=== PATIENT | female | born 1970 | race Caucasian/White ===

== ENCOUNTER 2021-07-23 14:41 | Outpatient (CLI) | payer OTHER, SELFPAY ==
--- NOTE | ~2021-07-23 | XR_ITS ---
XR chest 2V DATE: 07/23/2021 15:09 INDICATION: Cough. Recent pneumonia. TECHNIQUE: PA and lateral views COMPARISON: 11/28/2014 2 view chest FINDINGS: Normal heart size. No hilar or mediastinal enlargement. No pulmonary infiltrate or consolid ation, pleural effusion or pulmonary vascular congestion or pneumothorax. Included skeletal structure s are unremarkable. IMPRESSION: No active cardiopulmonary disease Reviewed, dictated and finalized at location A.
== END 2021-07-23 14:42 | disposition home or self-care (01) ==
LOC: ANHIMG 14:57
PROVIDERS: PCP Internal Medicine; Visit Provider Nurse Practitioner
DX: R05.9 Cough, unspecified (principal); R00.0 Tachycardia, unspecified
CPT/HCPCS: 71046

== ENCOUNTER 2021-09-26 19:22 | Emergency (ER) | payer OTHER, SELFPAY ==
--- NOTE | ~2021-09-26 | XR_ITS ---
EXAMINATION: XR chest 1V portable INDICATION: Cough and fever TECHNIQUE: Portable AP chest at 2008 hours COMPARISON: 07/23/2021 FINDINGS: The lungs are free of acute opacities. There is no pleural effusion or pneumothorax. The ca rdiomediastinal silhouette is normal. The visualized bones and soft tissues are unremarkable. IMPRESSION: 1. No acute cardiopulmonary abnormality. Reviewed, dictated and finalized at location F.
[2021-09-26 19:25] VITALS: BP 147/95; PULSE 124; RESP 20; TEMP 37.5; O2SAT 100
--- NOTE | 2021-09-26 22:03 | ECG_ITS ---
Measurements Intervals [place] Rate: 122 P: 30 TX: 131 QRS: 16 QRSD: 89 T: 28 QT: 338 QTc: 482 Interpretive Statements SINUS TACHYCARDIA NONSPECIFIC T-WAVE ABNORMALITY ABNORMAL RHYTHM ECG NO PREVIOUS ECG AVAILABLE FOR COMPARISON Electronically Signed On 09-27-2021 9:26:17 CDT by Betsy Wheeler M.D.
[2021-09-26 22:44] LABS: Appearance Urine Clear (Clear); Bilirubin Urine Negative (Negative); Color Urine Yellow (Yellow); Glucose Urine UA Negative (Negative); Ketones Urine Negative (Negative); Leukocyte Esterase Ur Negative LEU/UL (Negative); Nitrate Urine Negative (Negative); Protein Urine Negative (Negative); Urobilinogen Urine 0.2 mg/dL (<2.0)
[2021-09-26 22:44] LABS: Basophils Percent Auto 0.4 % (0.2-1.2); Eosinophils Absolute Auto 0.1 K/mm3 (0-0.3); Eosinophils Percent Auto 1.2 % (0-4.4); Hematocrit 37.8 % (37.0-47.0); Hemoglobin 12.2 g/dL (12.0-15.0); Immature Granulocyte Absolute 0.03 K/mm3 (0.00-0.031); Immature Granulocyte Percent A 0.4 % (0-0.5); Lymphocytes Absolute Auto 0.78 K/mm3 (0.9-3.2); Lymphocytes Percent Auto 9.6 % (18.3-44.2); Mean Corpuscular HGB Conc 32.3 g/dl (32-36); Mean Corpuscular Hemoglobin 30.6 pg (26-34); Mean Corpuscular Volume 94.7 fl (80-100); Mean Platelet Volume 9.1 fl (7.4-10.4); Monocytes Absolute Auto 0.7 K/mm3 (0.1-0.6); Monocytes Percent Auto 8.8 % (2.6-8.5); Neutrophils Absolute Auto 6.5 K/mm3 (1.3-6.7); Neutrophils Percent Auto 79.6 % (45.5-73.1); Platelet Count Result 255 k/mm3 (150-375); Red Blood Count 3.99 M/mm3 (4.2-5.4); Red Cell Distribution Width 13.2 % (11.5-14.5); White Blood Count 8.2 K/mm3 (4.5-10.0)
[2021-09-26 22:45] LABS: Add Urine Microscopic? YES; Blood Urine Trace-Intact (Negative)
[2021-09-26 22:47] LABS: Mucus Urine Rare /lpf; Squamous Epithelial Cell Urine Rare /hpf (Few); WBC Urine 0-3 /hpf
[2021-09-26 22:48] LABS: Alanine Aminotransferase 23 U/L (6-35); Albumin Level 4.3 g/dL (3.5-5.1); Alkaline Phosphatase 112 U/L (38-126); Anion Gap 8 mmol/L (8-16); Aspartate Amino Transferase 40 U/L (14-36); Bilirubin,Total 0.3 mg/dL (0.2-1.3); Blood Urea Nitrogen 9 mg/dL (7-17); Calcium 8.8 mg/dL (8.4-10.2); Carbon Dioxide 27 mmol/L (22-30); Chloride 104 mmol/L (98-107); Estimated CRCL calculation 132 ml/min; Estimated Glomerular Filt Rate > 60; Glucose 108 mg/dL (65-110); Potassium 3.6 mmol/L (3.4-5.0); Sodium 139 mmol/L (137-145)
[2021-09-26 22:49] LABS: Lactic Acid Reflex 1.4 mmol/L (0.7-2.0)
[2021-09-26 22:49] LABS: INR 1.1; Prothrombin Time 13.3 Seconds (11.1-14.7)
[2021-09-26 22:50] LABS: Partial Thromboplastin Time 27.7 SECONDS (22.3-36.8)
[2021-09-26 22:52] LABS: D Dimer 0.42 ug/mL (<0.48)
[2021-09-26 22:59] VITALS: BP 155/80; PULSE 121; RESP 20; O2SAT 97
[2021-09-26 23:00] LABS: NT Pro B Type Natriuretic Pept 37 pg/mL (5-100); Troponin I < 0.012 ng/mL (0.000-0.034)
[2021-09-26] MEDS: SODIUM CHLORIDE 0.9% IV 1,000 ML 999 ML IV CONT ×2 (23:00)
[2021-09-26 23:13] LABS: SARS-CoV-2 RNA PCR Positive
--- NOTE | 2021-09-27 00:01 | ED.GENADULT ---
HPI - General Adult General Chief complaint: Dizziness Stated complaint: fever, cough since July 24 Time Seen by Provider: 09/26/21 22:02 Source: patient Mode of arrival: ambulatory Limitations: no limitations History of Present Illness HPI narrative: This is a 50 year old female who presents for evaluation of fever and worsening cough. Patient states starting in June she had fever and cough. She was started on antibiotics at that time for a sinus infection. She states her fever resolved until today. Today she had fever up to 102 F. She also reports today she had worsening cough that is productive with clear phlegm. SHe reports runny nose, congestion, sore throat, and diarrhea today. She denies vomiting. She reports midsternal chest pain when she coughs. She completed antibiotics 1 week ago for continued cough. She states she has done at home covid test which have been negative. Related Data Home Medications Medication Instructions Recorded Confirmed levothyroxine 200 mcg tablet 200 mcg PO DAILY 06/29/19 09/08/21 cholecalciferol (vitamin D3) 25 25 mcg PO DAILY 07/23/21 09/08/21 mcg (1,000 unit) capsule Allergies Allergy/AdvReac Type Severity Reaction Status Date / Time peanut Allergy Severe ANAPHYLAXIS Verified 09/26/21 19:29 red dye Allergy Dizziness Verified 09/26/21 19:29 shellfish derived AdvReac Severe FAULKNER/NAUSEA Verified 09/26/21 19:29 SEAFOOD AND SHELLFISH adhesive AdvReac Intermediate BLISTERS,SKIN Verified 09/26/21 19:29 PEELING doxycycline AdvReac Intermediate HALLUCINATI Verified 09/26/21 19:29 ONS tetracycline AdvReac Intermediate VISUAL Verified 09/26/21 19:29 DISTRUBANCE NAPROXEN SODIUM AdvReac Intermediate visual Uncoded 09/26/21 19:29 disturbance Review of Systems Review of Systems: All systems reviewed & are unremarkable except as noted in HPI and below Constitutional: Constitutional: Reports chills ENT: Reports nasal congestion and Reports sore throat Cardiovascular: Cardiovascular: Reports chest pain (with cough) and Denies rapid heart rate Respiratory: Respiratory: Reports chest congestion, Reports cough, Reports dyspnea and Denies wheezing Gastrointestinal: Gastrointestinal: Denies abdominal pain, Denies bloating, Denies constipation and Reports diarrhea Neurologic: Denies headache(s), Denies focal weakness and Denies numbness PMFSH Past Medical History Medical History Thyroid cancer 2017 Surgical History Surgical History H/O thyroidectomy 2017 Family History Family History Father CAD (coronary artery disease) Type 2 diabetes mellitus Thyroid disease Mother Type 2 diabetes mellitus Hypertension Sibling Thyroid cancer Other Depression Diabetes mellitus Family history of arthritis Family history of hearing loss Social History Social History Smoking status: Never smoker Alcohol intake: never Exam Const: General: no acute distress and alert Nutritional Appearance: obese Orientation/consciousness: patient oriented x3 HENMT: Head: normal to inspection Ears: external ears normal Eyes: Pupils: Equal, round and reactive pupils present EOM: EOMs intact bilaterally Neck: Neck: normal visual inspection Chest: Chest palpation & inspection: normal inspection of the chest Resp: Effort & Inspection: normal respiratory effort Auscultation: clear to auscultation bilaterally and breath sounds present Cardio: Rate: tachycardic Rhythm: regular rhythm Heart sounds: no murmurs GI: GI Palp: Yes Soft to palpation, No Tenderness to palpation present (GI), No Guarding due to palpation present (GI) and No Rigid due to palpation Auscultation: normal bowel sounds Back/Spine/Pelvis: Back: n
[2021-09-27 00:49] VITALS: BP 162/73; PULSE 117; RESP 22; O2SAT 96
[2021-09-27 01:48] VITALS: BP 146/73; PULSE 113; RESP 14; TEMP 37.7; O2SAT 94
[2021-09-27] MEDS: IBUPROFEN 400 MG TABLET 800 MG PO (02:59)
[2021-09-27 03:07] VITALS: BP 103/60; PULSE 103; RESP 18; O2SAT 95
[2021-09-27 05:17] LABS: Influenza A QL RT-PCR Negative (Negative); Influenza B QL RT-PCR Negative (Negative)
== END 2021-09-27 03:09 | disposition home or self-care (01) ==
PROVIDERS: Emergency Provider General Practice; PCP Internal Medicine
DX: U07.1 COVID-19 (principal); B34.9 Viral infection, unspecified; R06.00 Dyspnea, unspecified; Z85.850 Personal history of malignant neoplasm of thyroid
CPT/HCPCS: 36415; 71045; 80053; 81001; 83605; 83880; 84484; 85025; 85380; 85610; 85730; 87040; 87502; 93005; 96360; 96361; 96365; 99284; A9270; C9803; J0131; J7030; U0003; U0005

== ENCOUNTER 2022-02-26 18:33 | Emergency (ER) | payer OTHER, SELFPAY ==
--- NOTE | ~2022-02-26 | XR_ITS ---
XR wrist LT min 3V DATE: 02/26/2022 18:56 INDICATION: Injury and popping when lifting a child this morning TECHNIQUE: 3 views COMPARISON: None FINDINGS: The breasts no fracture or dislocation, periosteal reaction or bone destruction, erosive ch esmer or chondrocalcinosis. There is mild osteoarthritis at the first carpometacarpal joint. IMPRESSION: No fracture or dislocation Mild osteoarthritis at first carpometacarpal joint Reviewed, dictated and finalized at location A.
[2022-02-26 18:48] VITALS: BP 154/64; PULSE 95; RESP 12; TEMP 37.3; O2SAT 100
--- NOTE | 2022-02-26 19:03 | ED.UPPEXIN ---
HPI - Extremity Injury (Upper) General Chief Complaint: Extremity Injury, Upper Stated Complaint: Left Hand Injury/WC Time Seen by Provider: 02/26/22 19:28 Source: patient and RN notes reviewed Mode of arrival: ambulatory Limitations: no limitations History of Present Illness HPI narrative: 51-year-old female presents with concern for left wrist injury. 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 She reports no pain at rest, when she does certain motions like gripping, open car door, closing car door, pushing pulling she has pain in the radial wrist area. She reports some tingling in her hand. She denies swelling, bruising, redness. MD complaint: injury to: left and wrist Related Data Home Medications Medication Instructions Recorded Confirmed levothyroxine 200 mcg tablet 200 mcg PO DAILY 06/29/19 02/26/22 cholecalciferol (vitamin D3) 25 25 mcg PO DAILY 07/23/21 02/26/22 mcg (1,000 unit) capsule zinc gluconate 30 mg tablet 30 mg PO DAILY 09/30/21 02/26/22 calcium citrate 200 mg 1 tablet PO DAILY 02/26/22 02/26/22 [id number] D3 200 [id number] tablet (ADVANCED Calcium) Allergies Allergy/AdvReac Type Severity Reaction Status Date / Time peanut Allergy Severe ANAPHYLAXIS Verified 02/26/22 18:52 red dye Allergy Dizziness Verified 02/26/22 18:52 shellfish derived AdvReac Severe FAULKNER/NAUSEA Verified 02/26/22 18:52 SEAFOOD AND SHELLFISH adhesive AdvReac Intermediate BLISTERS,SKIN Verified 02/26/22 18:52 PEELING doxycycline AdvReac Intermediate HALLUCINATI Verified 02/26/22 18:52 ONS tetracycline AdvReac Intermediate VISUAL Verified 02/26/22 18:52 DISTRUBANCE NAPROXEN SODIUM AdvReac Intermediate visual Uncoded 02/26/22 18:52 disturbance Review of Systems Review of Systems: CONSTITUTIONAL: Denies malaise, chills, sweats, or fever. SKIN: Denies rash or itching, open skin, laceration, abrasion, redness, warmth, swelling. MUSCULOSKELETAL: Reports left wrist pain NEUROLOGIC: Denies numbness, weakness All systems reviewed & are unremarkable except as noted in HPI and below PMFSH Past Medical History Medical History Thyroid cancer 2017 Surgical History Surgical History H/O thyroidectomy 2016 Family History Family History Father CAD (coronary artery disease) Type 2 diabetes mellitus Thyroid disease Mother Type 2 diabetes mellitus Hypertension Sibling Thyroid cancer Other Depression Diabetes mellitus Family history of arthritis Family history of hearing loss Social History Social History Smoking status: Never smoker Alcohol intake: never Comments At time of signature, agree with nursing past medical, surgical, social and family history. There is no relevant family history pertinent to the presenting complaint Exam Narrative: GENERAL: Well-appearing, well-nourished, and in no acute distress. HEAD: Normocephalic EYES: PERRLA, conjunctivae clear NECK: Supple. CHEST: Speaks in full sentences. No respiratory distress. HEART: Regular rate and rhythm. Normal and equal peripheral pulses. EXTREMITIES: Left wrist hand and digits of hand have normal strength and sensation. 5/5 strength with digit flexion, extension. Range of motion normal. No clubbing, cyanosis, or edema noted. No tenderness. Skin intact. Normal digital cascade with flexion of fingers, median, ulnar and radial nerve intact. Normal sensation of each side of finger. Can perform 'okay' sign, 'cross over finger test of index and middle fingers' and 'thumbs up' sign. No scissoring. Normal thumb opposition. Good capillary refill and radial pulse. Distal capillary refill
== END 2022-02-26 19:40 | disposition home or self-care (01) ==
PROVIDERS: Emergency Provider Nurse Practitioner; PCP Internal Medicine
DX: S63.502A Unspecified sprain of left wrist, initial encounter (principal); X58.XXXA Exposure to other specified factors, initial encounter; Y99.0 Civilian activity done for income or pay; E89.0 Postprocedural hypothyroidism; Z85.850 Personal history of malignant neoplasm of thyroid
CPT/HCPCS: 73110; 99213; G0463

== ENCOUNTER 2023-02-03 13:52 | Emergency (ER) | payer OTHER, SELFPAY ==
[2023-02-03 14:01] VITALS: BP 151/75; PULSE 76; RESP 16; TEMP 36.9; O2SAT 97
[2023-02-03] MEDS: TETANUS,DIPHTHERIA,AC PERTUSSIS ADULT (0.5 ML) BOOSTRIX IM (14:28)
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
== END 2023-02-03 14:43 | disposition home or self-care (01) ==
PROVIDERS: Emergency Provider Nurse Practitioner Family; PCP Internal Medicine
DX: S51.851A Open bite of right forearm, initial encounter (principal); Z79.899 Other long term (current) drug therapy; Z23 Encounter for immunization; W50.3XXA Accidental bite by another person, initial encounter; Y99.0 Civilian activity done for income or pay
CPT/HCPCS: 90471; 90715; 99213; G0463

== ENCOUNTER 2023-10-10 12:10 | Emergency (ER) | payer OTHER, SELFPAY ==
[2023-10-10 12:36] VITALS: BP 103/83; PULSE 88; RESP 20; TEMP 37.5; O2SAT 100
--- NOTE | 2023-10-10 14:06 | ED.GENADULT ---
HPI - General Adult General Chief complaint: Upper Respiratory Infection Stated complaint: throat/congestion Time Seen by Provider: 10/10/23 13:35 Source: patient, RN notes reviewed and old records reviewed Mode of arrival: ambulatory Limitations: no limitations History of Present Illness HPI narrative: 52 year old female who presents to [facility] care with complaints of 5 day history of dry cough, ear pain, sore throat, head congestion, hoarseness, body aches, chills fatigue and some dizziness. Pateint has history of sinus allergies has been taking Zyrtec for her symptoms. Patient reports no known ill contacts. MD complaint: csore throat, head congestion, body aches,chills cough,ear pain, Onset (ago): day(s) (5) Severity scale (1-10): 3 Treatments prior to arrival: other (zyrtec) Related Data Home Medications Medication Instructions Recorded Confirmed levothyroxine 175 mcg tablet 175 mcg PO DAILY 02/03/23 10/10/23 (Synthroid) Allergies Allergy/AdvReac Type Severity Reaction Status Date / Time peanut Allergy Severe ANAPHYLAXIS Verified 10/10/23 13:25 red dye Allergy Dizziness Verified 10/10/23 13:25 shellfish derived AdvReac Severe FAULKNER/NAUSEA Verified 10/10/23 13:25 SEAFOOD AND SHELLFISH adhesive AdvReac Intermediate BLISTERS,SKIN Verified 10/10/23 13:25 PEELING doxycycline AdvReac Intermediate HALLUCINATI Verified 10/10/23 13:25 ONS naproxen AdvReac Intermediate Unknown Verified 10/10/23 13:25 tetracycline AdvReac Intermediate VISUAL Verified 10/10/23 13:25 DISTRUBANCE Review of Systems Review of Systems: CONSTITUTIONAL:reports malaise, chills, sweats, or fever. EYES: Denies visual changes, redness, or discharge. ENT: Reports rhinorrhea, congestion, sinus pain, otalgia and sore throat. CARDIOVASCULAR: Denies chest pain, palpitations, or edema. RESPIRATORY: Reports dry cough.? Denies dyspnea. GASTROINTESTINAL: Denies abdominal pain, nausea, vomiting, diarrhea SKIN: Denies rash or itching. MUSCULOSKELETAL:reports myalgia. NEUROLOGIC: Denies headache. All systems reviewed & are unremarkable except as noted in HPI and below PMFSH Past Medical History Medical History Anxiety and depression Chronic sinusitis Hypothyroidism (acquired) Thyroid cancer 2017 Surgical History Surgical History H/O thyroidectomy 2017 History of arthroscopy of knee History of hysteroscopy Family History Family History Father CAD (coronary artery disease) Type 2 diabetes mellitus Thyroid disease Mother Type 2 diabetes mellitus Hypertension Sibling Thyroid cancer Other Depression Diabetes mellitus Family history of arthritis Family history of hearing loss Social History Social History Smoking status: Never smoker Alcohol intake: current Substance use: never Substance use type: does not use Living arrangements: alone Occupation/Education: unemployed Gender identity (if verbalized by the patient): Female Agree to blood products: Yes Comments At time of signature, agree with nursing past medical, surgical, social and family history. There is no relevant family history pertinent to the presenting complaint Exam Narrative: GENERAL: Well-appearing, well-nourished, and in no acute distress. HEAD: Normocephalic EYES: PERRLA, conjunctivae clear ENT: Nares clear, turbinates edematous and erythematous, clear discharge. Mucous membranes moist Right TM red and bulging, Left TM pearly kc with dull light reflex; no tragal tenderness. Oropharynx erythematous without lesions. Tonsils not enlarged and without exudate, no drooling, no hoarseness, no trismus, uvula midline.post nasal drainage NECK: Supple. No lymphadenopathy
== END 2023-10-10 14:10 | disposition home or self-care (01) ==
PROVIDERS: Emergency Provider Registered Nurse; PCP Internal Medicine
DX: H66.91 Otitis media, unspecified, right ear (principal); J02.9 Acute pharyngitis, unspecified; Z20.822 Contact with and (suspected) exposure to COVID-19; E89.0 Postprocedural hypothyroidism; Z85.850 Personal history of malignant neoplasm of thyroid
CPT/HCPCS: 87081; 87426; 87804; 87880; 99213; G0463

== ENCOUNTER 2024-10-04 20:12 | Emergency (ER) | payer OTHER, SELFPAY ==
--- NOTE | ~2024-10-04 | XR_ITS ---
XR foot LT min 3V Ordering provider: Zainab High APRN History: . L foot injury . Comparison: None. FINDINGS: BONES: No acute fracture or dislocation. JOINT SPACES: Normal. No tarsal coalition. SOFT TISSUES: Normal. Calcaneus spur. IMPRESSION: No acute osseous abnormality left foot. Reviewed, dictated and finalized at location A.
--- OUTSIDE RECORDS SUMMARY | 2024-10-04 20:14 | XMS_ITS | Encounter Summary ---
Author Organization [facility] Healthcare Address [address] [place] [address] Care Team Providers Care X Ray Equipment Servicer Name Role Phone Samuel Brooke DO Primary Care Provider [phone]- [phone] Reason for Visit * Diagnostic Imaging (Routine) - Pending Review Specialty Diagnoses / Procedures Referred By Sandra jacobs Referred To Contact Procedures Breast Imaging Diagnostic Outside Reference Referral, Self Referral ID Status Reason Start Date Expiration Date V isits Requested Visits Authorized [id number] Pending Review 05/09/2024 06/08/2025 1 1 Encounter Details Date Type Department Care Team (Late st Contact Info) Description 01/18/2017 Hospital Encounter [facility] [address] [place] [address] [id number] Social History Tobacco Use Types Packs/Day Years Used Date Smoking Tobacco: Never Smokeless Tobacco: Never Alcohol Use Standard Drinks/Week Comments Never 0 (1 standard drink = 0.6 oz pur e alcohol) AUDIT-C Answer Date Recorded Q1: How often do you have a drink containing alc ohol? Monthly or less 01/09/2021 Average Number of Drinks Not on file 021 Q3: How often do you have si x or more drinks on one occasion? 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 Sexual Orientation Straight 05/03/2024 9: 50 PM DIRECTOR OF TEACHING AND LEARNING documented as of this encounter Functional Status documented as of this encounter Plan of Treatment Not on file documented as of this encounter Procedures Procedure Name Priority Date/Time Associated Diagnosis Comments BREAST IMAGING MG DIAGNOSTIC OUTSIDE REFERENCE Routine 01/18/2017 12:00 AM CDT documented in this encounter Results * Breast Imaging Diagnostic Outside Reference (01/18/2017 12:00 AM CDT) Impressions [facility] - 05/09/2024 2:04 PM DIRECTOR OF TEACHING AND LEARNING These images are for Reference purposes only and have not been reviewed by [facility] Radiology. There will be no report generated by a [facility] Radiologist. Narrative [facility] - 05/09/2024 2:04 PM DIRECTOR OF TEACHING AND LEARNING EXAMINATION: Images For Reference Purposes Only us Self Referral IMG MAMMO PROCEDURES Final Resul t [facility] documented in this encounter Visit Diagnoses Not on filedocumented in this encounter Care Teams X Ray Equipment Servicer Relationship Specialty Start Date End Date Samuel Brooke DO PCP - General 07/08/16 documented as of this encounter
--- OUTSIDE RECORDS SUMMARY | 2024-10-04 20:14 | XMS_ITS | Encounter Summary ---
Author Organization [facility] Healthcare Address [address] [place] [address] Care Team Providers Care Impersonator Character Name Role Phone Samuel Brooke DO Primary Care Provider [phone]- [phone] Reason for Visit * Diagnostic Imaging (Routine) - Pending Review Specialty Diagnoses / Procedures Referred By Sandra jacobs Referred To Contact Procedures Breast Imaging Screening Outside Reference Referral, Self Referral ID Status Reason Start Date Expiration Date V isits Requested Visits Authorized [id number] Pending Review 05/09/2024 06/08/2025 1 1 Encounter Details Date Type Department Care Team (Late st Contact Info) Description 02/17/2017 Hospital Encounter [facility] Radiology [facility] [address] [place] [address] [phone] Social History Tobacco Use Types Packs/Day Years [...] CDT Gender Identity Female 05/03/2024 9:50 PM 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[employer] Sexual Orientation Straight 05/03/2024 9: 50 PM 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[employer] documented as of this encounter Functional Status documented as of this encounter Plan of Treatment Not on file documented as of this encounter Procedures Procedure Name Priority Date/Time Associated Diagnosis Comments BREAST IMAGING MG SCREENING OUTSIDE REFERENCE Routine 02/17/2017 12:00 AM CDT documented in this encounter Results * Breast Imaging Screening Outside Reference (02/17/2017 12:00 AM CDT) Impressions [facility] - 05/09/2024 2:04 PM 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 These images are for Reference purposes only and have not been reviewed by [facility] Radiology. There will be no report generated by a [facility] Radiologist. Narrative [facility] - 05/09/2024 2:04 PM 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 EXAMINATION: Images For Reference Purposes Only us Self Referral IMG MAMMO PROCEDURES Final Resul t [facility] documented in this encounter Visit Diagnoses Not on filedocumented in this encounter Care Teams Impersonator Character Relationship Specialty Start Date End Date Samuel Brooke DO PCP - General 07/08/16 documented as of this encounter
--- OUTSIDE RECORDS SUMMARY | 2024-10-04 20:14 | XMS_ITS | Clinical Summary ---
Author Organization [facility] Address [address] [place] [address] Care Team Providers Care Impregnation Operator Name Role Phone Samuel Brooke DO Primary Care Provider [phone] Source Comments [facility],non-owned Affiliates and Associated Physician Practices is amultiple site organization consisting of ambulatory clinics and hospital sitesin [place], [place], [place] and [place]. This disclosure is being madepursuant to the Care Everywhere program and may not contain all information available regarding this patient. Last updated 18.[facility] [employer] Allergies Active Allergy Reactions Criticality Noted Date Comments Naproxen Other 04/02/2018 Dizziness and visual impairment Peanut-Derived Anaphylaxis High 04/02/2018 Shellfish Allergy Anaphylaxis High 04/02/2018 Tetracyclines Other 04/02/2018 Dizziness, and visual impairment Medications * Be aware that medications may not be up to date on this document. Alwaysverify current medications with the patient. levothyroxine (SYNTHROID) 200 MCG tablet Take 200 mcg by mouth daily before breakfast Active Calcium Carb-Cholecalci ferol (CALCIUM 500 + D3 PO) Active Family History Medical History Relation Name Comments Cancer - Skin, Non Melanoma Father Diabetes - Type 2 Father Thyroid Disease Father Cancer - Breast Mother Asthma Neg Hx Autoimmune Disease Neg Hx Bipolar Disorder Neg Hx Cancer - Colon Neg Hx Cancer - Ovarian Neg Hx Cancer - Pancreatic Neg Hx Cancer - Prostate Neg Hx Depression Neg Hx Eczema Neg Hx Hypertension Neg Hx Migraine Neg Hx Osteoporosis Neg Hx Seizures Neg Hx Sudd. <30 Neg Hx Ulcerative Colitis Neg Hx Relation Name Status Comments Father Alive Mother Alive Social History Tobacco Use Types Packs/Day Years Used Date Smoking Tobacco: Never Smokeless Tobacco: Never Tobacco Cessation:Counseling Given: No Alcohol Use Standard Drinks/Week Comments No 0 (1 standard drink = 0.6 oz pur e alcohol) Comments No Sex and Gender Information Value Date Recorded Sex Assigned at Not on file Legal Sex Female 9:44 PM GRAPHIC DESIGN PROFESSOR Gender Identity Not on file Sexual Orientation Not on file Last Filed Vital Signs Vital Sign Reading Time Taken Comments Blood Pressure 122/68 04/02/2018 11:05 AM GRAPHIC DESIGN PROFESSOR Pulse 81 04/02/2018 11:05 AM GRAPHIC DESIGN PROFESSOR Temperature 36.4 C (97.6 F) 04/02/2018 11:05 AM GRAPHIC DESIGN PROFESSOR Respiratory Rate 16 04/02/2018 11:05 AM GRAPHIC DESIGN PROFESSOR Oxygen Saturation 98% 04/02/2018 11:05 AM GRAPHIC DESIGN PROFESSOR Inhaled Oxygen Concentration - - Weight 97.5 kg (215 lb) 04/02/2018 11:05 AM GRAPHIC DESIGN PROFESSOR Height 157.5 cm (5' 2) 04/02/2018 11:05 AM GRAPHIC DESIGN PROFESSOR Body Mass Index 39.32 04/02/2018 11:05 AM GRAPHIC DESIGN PROFESSOR Plan of Treatment Health Maintenance Due Date Last Done Comments COLOGUARD (AGES 45-75) - COL ON CA SCREENING 1969 COLON MONITORING 1969 COLONOSCOPY - COLON CA SCREENING 1969 CT COLONOGRAPHY - COLON CA SCREENING 1969 Colorectal Cancer Screening 1969 FIT - COLON CA SCREENING 1969 FLEX SIG - COLON CA SCREENING 1969 LIPID TESTING 1969 MAMMOGRAM 1969 HIV SCREENING 1984 HEPATITIS C SCREENING 12/25/1987 DTAP/TDAP/TD VACCINES (1 - Tdap) 1988 HEPATITIS B VACCINE (1 of 3 - 19+ 3-dose series) 1988 SCREENING FOR DIABETES 04/02/2018 PNEUMOCOCCAL VACCINE 50+ (1 of 1 - PCV) 12/30/2019 ZOSTER VACCINE (1 of 2) 12/30/2019 COVID-19 VACCINE ( - 2023-2 5 season) 2023 DEPRESSION SCREENING 04/26/2024 INFLUENZA VACCINE (Season Ended) 2024 HIB VACCINE Aged Out No longer eligi ble based on patient's age to complete this topic HPV VACCINE Aged Out No longer eligi ble based on patient's age to complete this topic MENINGOCOCCAL (Group B) VACC INE SHARED DECISION-MAKING Aged Out No longer eligibl e based on patient's age to complete this topic MENINGOCOCCAL GROUPS A/C/Y/W VACCINE Aged Out No longer eligible b ased on patient's age to complete this topic Care Teams Impregnation Operator Relationship Specialty Start Date End Date Samuel Brooke DO PCP - General Internal Medicine 04/02/18
--- OUTSIDE RECORDS SUMMARY | 2024-10-04 20:14 | XMS_ITS | Clinical Summary ---
Author Organization [facility] Address [address] [place] [address] Care Team Providers Care Sales Coordinator Name Role Phone Samuel Brooke DO Primary Care Provider [phone]- [phone] Allergies Active Allergy Reactions Criticality Noted Date Comments Doxycycline Dizziness Reaction: DIZZINESS, Naproxen Dizziness Reaction: DIZZINESS, Peanut Anaphylaxis High 04/02/2018 Shellfish Anaphylaxis High 04/02/2018 Medications calcium carbonate-vitam in D3 1,250mg (500mg elemental) - 200 units per tablet Take 1 tablet by mouth 2 (two) times a day with meals Active sertraline (ZOLOFT) 100 mg tablet Take 1 tablet (100 mg total) by mouth daily 2 Active metFORMIN XR (GLUCOPHAGE XR) 500 mg 24 hr tabletIndicatio ns:Weight loss counseling, encounter for TAKE 1 TABLET(500 MG) BY MOUTH DAILY WITH BREAKFAST FOR 7 DAYS THEN TAKE 2 TABLETS(1000 MG) BY MOUTH DAILY WITH BREAKFAST 171 tablet 3 Active Additional Information Patient not taking.Reported on 03/26/2023 sertraline (ZOLOFT) 50 mg tablet 1 tablet (50 mg total) 4 Active levothyroxine (SYNTHROID) 175 mcg tablet Take 1 tablet by mouth daily 90 tablet 2 5 Active triamcinolone (KENALOG) 0.1 % ointment APPLY TOPICALLY TO THE AFFECTED AREA TWICE DAILY 5 Active Active Problems Problem Noted Date Diagnosed Date Arthralgia of both hands 10/01/2023 Rash and nonspecific skin eruption 10/01/2023 Chronic bilateral low back pain without sciatica 10/01/2023 Heartburn 04/23/2022 Assessment & Plan (04/23/2022 9:39 PM PATTERNMAKER PRESSURE CAST): Discussed more likely related to stress or possibly something she ate, rather than change in levothyroxine. Recommended starting omeprazole 20 mg BID. If no improvement, follow up with PCP. Arthritis 03/09/2022 Assessment & Plan (03/09/2022 3:39 PM PATTERNMAKER PRESSURE CAST): referral to Rheumatology Weight loss counseling, encounter for 10/17/2021 Assessment & Plan (05/25/2022 6:11 PM PATTERNMAKER PRESSURE CAST): Reviewed calorie restriction based on BMR as previously detailed. Reviewed recommendation/goal of >/= 150 minutes/week moderate-intensity aerobic exercise. Asked to try to track consistently with [employer] ujliann for at least 1 week to help identify calorie/carb/protein intake. Commended for weight loss to date. Assessment & Plan (04/23/2022 9:26 PM PATTERNMAKER PRESSURE CAST): Reviewed calorie restriction based on BMR as previously detailed. Reviewed recommendation/goal of >/= 150 minutes/week moderate-intensity aerobic exercise. Asked to keep detailed food diary for at least 1 week and bring to next visit and/or continue tracking on phone. Assessment & Plan (10/17/2021 5:29 PM CDT): Discussed that significant health benefits/risk reduction may be seen with even 5% weight loss. Discussed that weight loss will require calorie deficit. Calculated basal metabolic rate and estimated total energy expenditure; discussed 500-1000 kcal/day deficit to lose 1-2 lb per week. Asked to keep detailed food diary for at least 1 week and bring to next visit. Discussed setting SMART goals. Discussed relatively small, although significant, role of exercise in weight loss; greater importance in weight maintenance as shown in Look Ahead study and National Weight Control Registry. Discussed recommendation/goal for 150 minutes per week moderate-intensity aerobic exercise. Metabolic and nutritional disorder 10/17/2021 Overview (04/23/2022): MARIA LUISA-IR 4.2 Assessment & Plan (05/25/2022 6:12 PM PATTERNMAKER PRESSURE CAST): Continue low-carb (<150 g/day), low-glycemic diet. With IR confirmed per MARIA LUISA-IR score of 4.2 will start Metformin XR 500mg -- take 1 tablet daily for the 1st week, then increase to 2 tablets daily if tolerating. Discussed rationale in setting of insulin resistance. Discussed risks, benefits, alternatives, and potential side effects. Assessment & Plan (04/23/2022 9:45 PM PATTERNMAKER PRESSURE CAST): Reviewed labs with her. Continue low-carb (<150 g/day), low-glycemic diet. Discussed use of GLP-1 RA -- defer for now in setting of recent heartburn. Discussed risks, benefits, alternatives, potential side effects. No personal or family history of MTC or MEN2. Assessment & Plan (10/17/2021 5:29 PM CDT): Labs. Discussed increased risk for DM in setting of obesity and FHx DM. Discussed insulin resistance including effect on weight and risk for progression to diabetes. Recommended low-carb, low-glycemic diet; choose whole grains and avoid more highly processed carbohydrates. Discussed potential benefits of this w/r/t gut microbiome. Referred to ADA and [employer] [facility] websites for additional information on topics including glycemic index/carbohydrate choices, protein sources. More detailed recommendations pending review of labs and food record. Fatigue 10/17/2021 Assessment & Plan (05/25/2022 6:13 PM PATTERNMAKER PRESSURE CAST): Seems improved somewhat, continues to work on sleep hygiene habits. Assessment & Plan (10/17/2021 5:29 PM CDT): Labs. Discussed importance of adequate sleep; good sleep hygiene in controlling weight as well as for overall health. Snores 10/17/2021 Assessment & Plan (10/17/2021 5:29 PM CDT): Discussed comorbidities associated with sleep apnea, including effects on weight, and stressed importance of adequate treatment if present. Recommended to discuss possible sleep study with PCP. Class 3 severe obesity with serious comorbidity and body mass index (BMI) of 45.0 to 49.9 in adult 03/17/2021 Assessment & Plan (05/25/2022 6:13 PM PATTERNMAKER PRESSURE CAST): Obesity is improving with treatment. Diet interventions: as noted. Regular aerobic exercise program discussed. Plan- Start pharmacotherapy. Continue diet/exercise interventions as discussed. Schedule follow up with Dr. Palomares in 3 months. Assessment & Plan (04/23/2022 9:37 PM PATTERNMAKER PRESSURE CAST): Obesity is improving.. Plan: Diet interventions: as noted.. and Regular aerobic exercise program discussed. Assessment & Plan (03/09/2022 3:39 PM PATTERNMAKER PRESSURE CAST): Discussed lifestyle changes Scheduled with weight management clinic next month Has been working with pharmacist apprentice Assessment & Plan (03/17/2021 3:50 PM PATTERNMAKER PRESSURE CAST): Discussed lifestyle changes Will refer to weight management clinic given her BMI Post-surgical hypothyroidism 03/06/2019 Assessment & Plan (07/27/2023 5:23 PM CDT): Continue current levothyroxine dose. TSH goal normal range Assessment & Plan (03/09/2022 3:13 PM PATTERNMAKER PRESSURE CAST): Continue current levothyroxine dose. Will check thyroid function test and adjust levothyroxine dose accordingly. TSH goal lower normal range Assessment & Plan (03/17/2021 3:51 PM PATTERNMAKER PRESSURE CAST): Continue current levothyroxine dose. Will check thyroid function test and adjust levothyroxine dose accordingly. Assessment & Plan (03/04/2020 3:37 PM PATTERNMAKER PRESSURE CAST): Continue current levothyroxine dose. Will check thyroid function test and adjust levothyroxine dose accordingly. Assessment & Plan (03/06/2019 8:46 AM PATTERNMAKER PRESSURE CAST): Continue current levothyroxine dose. Will check thyroid function test and adjust levothyroxine dose accordingly. Prolactin increased 03/06/2019 Assessment & Plan (03/06/2019 8:47 AM PATTERNMAKER PRESSURE CAST): Asked for outside pituitary MRI Will check PRL level Discussed other causes of high prolactin and If/ when treatment is indicated Menstrual cramps 03/06/2019 Assessment & Plan (03/06/2019 8:46 AM PATTERNMAKER PRESSURE CAST): Will refer to ROADWAY ENGINEER for evaluation of heavy bleeding Thyroid cancer 09/29/2018 Assessment & Plan (03/06/2019 8:46 AM PATTERNMAKER PRESSURE CAST): No evidence of tumor recurrence on biochemical and radiological data so far followed by radiation oncology. Will plan follow-up with thyroid function test with a TSH goal lower normal. Biochemical evaluation with thyroid tumor markers. We will also obtain neck ultrasound for evaluation of the neck. If above are in acceptable range, will plan follow-up on yearly basis Labs checked this year - will only check TFT and Calcium level Papillary carcinoma of thyroid 07/08/2016 Assessment & Plan (07/27/2023 5:23 PM CDT): No evidence of tumor recurrence on biochemical and radiological data so far Low risk micro-papillary thyroid cancer TSH goal lower normal Biochemical evaluation with thyroid tumor markers. Assessment & Plan (03/09/2022 3:38 PM PATTERNMAKER PRESSURE CAST): No evidence of tumor recurrence on biochemical and radiological data so far Low risk micro-papillary thyroid cancer TSH goal lower normal Biochemical evaluation with thyroid tumor markers. Assessment & Plan (03/17/2021 3:51 PM PATTERNMAKER PRESSURE CAST): No evidence of tumor recurrence on biochemical and radiological data so far Low risk micro-papillary thyroid cancer TSH goal lower normal, given patient weight gain, she'd like to keep her TSH suppressed Biochemical evaluation with thyroid tumor markers. If above are in acceptable range, will plan follow-up on yearly basis Assessment & Plan (03/04/2020 3:37 PM PATTERNMAKER PRESSURE CAST): No evidence of tumor recurrence on biochemical and radiological data so far Low risk micro-papillary thyroid cancer TSH goal lower normal. Biochemical evaluation with thyroid tumor markers. We will also obtain neck ultrasound for evaluation of her neck symptoms If above are in acceptable range, will plan follow-up on yearly basis Patient reassured if above normal, no need for TBS She is suffering from financial toxicity Encounters Date Type Department Care Team Description 10/03/2024 3:00 PM CDT Office Visit [facility] Rheumatology [address] [facility] [address] [place] [address] [place] [id number] Franco Silva MD PhD Chronic right-sided low back pain, unspecified whether sciatica present (Primary Dx); Arthritis 10/03/2024 Documentation [facility] Rheumatology [address] [facility] [address] [place] [address] [place] [id number] Sarah Beth Sanchez CMA from Last 3 Months Surgical History Surgery Date Site/Laterality Comments MENISCUS SURGERY Left THYROIDECTOMY 04/26/2016 - 04/25/2017 ENDOMETRIAL ABLATION 2015,2017 HYSTEROSCOPY 04/26/2018 - 04/25/2019 Medical History Medical History Date Comments Thyroid cancer (HCC) Migraines Family History Medical History Relation Name Comments Diabetes Father Skin cancer Father Prostate cancer Maternal Grandfather Breast cancer Mother Hypertension Mother Throat cancer Paternal Grandfather Thyroid cancer Sister Relation Name Status Comments Father Maternal Grandfather Mother Alive Paternal Grandfather Sister Social History Tobacco Use Types Packs/Day Years Used Date Smoking Tobacco: Never Smokeless Tobacco: Never Tobacco Cessation:Counseling Given: Not Answered Alcohol Use Standard Drinks/Week Comments Never 0 [...] CDT Gender Identity Female 05/03/2024 9:50 PM PATTERNMAKER PRESSURE CAST Sexual Orientation Straight 05/03/2024 9: 50 PM PATTERNMAKER PRESSURE CAST Obstetrics History Para Term AB IAB SAB Ectopic Multiple Livin g Live Births 3 3 1 1 2 2 Date Outcome GA Total Labor Labor/2nd/3rd Weight Sex Type Anes PTL Rebecca A1 A5 Name Clin 1993 28w 0d M Vag-S pont Demise Complications:None Delivery Location:Home 1998 Para 42w 0d 4.479 kg (9 lb 14 oz) M Vag-S pont Living Complications:Pre eclampsia 2000 Term 42w 0d 3.856 kg (8 lb 8 oz) F Vag-S pont Living Complications:None Last Filed Vital Signs Vital Sign Reading Time Taken Comments Blood Pressure 134/87 10/03/2024 2:55 PM CDT Pulse 87 10/03/2024 2:55 PM CDT Temperature 37.1 C (98.7 F) 10/03/2024 2:55 PM CDT Respiratory Rate 20 10/17/2021 2:49 PM CDT Oxygen Saturation 98% 10/01/2023 9:28 AM CDT Inhaled Oxygen Concentration - - Weight 112.5 kg (248 lb) 10/03/2024 2:55 PM CDT Height 157.5 cm (5' 2) 10/03/2024 2:55 PM CDT Body Mass Index 45.36 10/03/2024 2:55 PM CDT Plan of Treatment Health Maintenance Due Date Last Done Comments Cervical Cancer Screening 1970 Depression Screening 1970 Hepatitis C Screening 1970 DTaP/Tdap/Td Vaccine (1 - Tdap) 1980 Hepatitis B Screening 12/30/1987 Zoster Vaccine (1 of 2) 12/30/2019 Regular Well Visit/Exam 18-64 05/30/2020 05/30/2019 Influenza Vaccine (Season Ended) 2024 Breast Cancer Screening-Mammogram 05/06/2025 025 Colon Cancer Screening-Colonoscopy 01/09/20312020 Pneumococcal vaccine <65 Aged Out No longer eligible based on patient's age to complete this topic Procedures Procedure Name Priority Date/Time Associated Diagnosis Comments SCREENING MAMMOGRAM BILATERAL W LV Schedule Routine, Read Routine (OP Routine) 05/06/2024 2:08 PM PATTERNMAKER PRESSURE CAST Screening mammogram, encounter for COLONOSCOPY 01/09/2021 1:38 PM CDT from Last 3 Months or Most Recently Relevant to Health Maintenance Results * Screening Mammogram Bilateral W Lv (05/06/2024 2:08 PM PATTERNMAKER PRESSURE CAST) Anatomical Region Laterality Modality Breast Bilateral Mammography Narrative 05/09/2024 4:01 PM PATTERNMAKER PRESSURE CAST Mammogram Technique: Bilateral Digital Breast Tomosynthesis, Bilateral C-view 2D Screening mammogram. Views obtained: bilateral craniocaudal and bilateral mediolateral oblique. Computer Aided Detection was performed. Mammogram Findings: The present examination has been compared to prior imaging studies performed at [facility] on 07/10/2016, 01/18/2017 and 02/17/2017. The breasts are heterogeneously dense, which may obscure small masses. There is no suspicious abnormality in either breast. There are no significant changes from the prior study. Impression: There is no mammographic evidence of malignancy. Annual screening mammography is recommended. If supplemental screening is desired, breast MRI would be recommended in this patient with heterogeneously dense breasts. OVERALL FINAL ASSESSMENT: BI-RADS CATEGORY 1: Negative. Procedure Note Carly Huerta MD - 05/09/2024 Mammogram Technique: Bilateral Digital Breast Tomosynthesis, Bilateral C-view 2D Screening mammogram. Views obtained: bilateral craniocaudal and bilateral mediolateral oblique. Computer Aided Detection was performed. Mammogram Findings: The present examination has been compared to prior imaging studies performed at [facility] on 07/10/2016, 01/18/2017 and 02/17/2017. The breasts are heterogeneously dense, which may obscure small masses. There is no suspicious abnormality in either breast. There are no significant changes from the prior study. Impression: There is no mammographic evidence of malignancy. Annual screening mammography is recommended. If supplemental screeningis desired, breast MRI would be recommended in this patient with heterogeneously dense breasts. OVERALL FINAL ASSESSMENT: BI-RADS CATEGORY 1: Negative. us Self Screening Mammogram IMG MAMMO PROCEDURES Fi nal Result * COLONOSCOPY (01/09/2021 1:38 PM CDT) Anatomical Region Laterality Modality Other Narrative Procedure Note Anshul Leonard MD PhD - 01/09/2021 1:38 PM CDT ENDOSCOPY LAB Patient Name: Josefa Weaver Procedure Date: 01/09/2021 1:38 PM Date of : 1970 Admit Type: Outpatient Age: 50 Gender: Female Attending MD: Anshul Leonard MD,PHD Room: [facility] ENDOSCOPY ROOM 01 Note Status: Finalized Procedure: Colonoscopy Indications: Screening for colorectal malignant neoplasm Providers: Anshul Leonard MD, PHD, Bimal Blancas M.D. (Fellow) Referring MD: Samuel Brooke DO Medicines: Monitored Anesthesia Care Complications: No immediate complications. Estimated Blood Loss: Estimated blood loss was minimal. Procedure: Pre-Anesthesia Assessment: - Prior to the procedure, a History and Physicalwas performed, and patient medications, allergies and sensitivities were reviewed. The patient'stolerance of previous anesthesia was reviewed. - The risks and benefits of the procedure and the sedation options and risks were discussed with the patient. All questions were answered and informed consent was obtained. - After reviewing the risks and benefits, thepatient was deemed in satisfactory condition to undergo the procedure. - Immediately prior to administration ofmedications, the patient was re-assessed for adequacy to receive sedatives. The benefits, risks and alternatives of theprocedure and sedation were discussed and informed consentwas obtained. All questions were answered. Please referto the signed informed consent document in the medical record. The scope was passed under direct vision.The [id number] was introduced through the anusand advanced to the cecum, identified by appendiceal orifice and ileocecal valve. The colonoscopy was performed with ease. The patient tolerated the procedure well. The quality of the bowelpreparation was evaluated using the BBPS ([place] BowelPreparation Scale) with scores of: Right Colon = 3 (entiremucosa seen well with no residual staining, smallfragments of stool or opaque liquid), Transverse Colon = 3 (entire mucosa seen well with no residual staining, small fragments of stool or opaque liquid) and Left Colon = 3 (entire mucosa seen well with no residual staining, small fragments of stool or opaqueliquid). The total BBPS score equals 9. The quality of the bowel preparation was excellent. Bowel prep was administered using a split dose. Findings: The perianal and digital rectal examinations were normal. A 4 mm polyp was found in the transverse colon. The polyp wassessile. The polyp was removed with a jumbo cold forceps. Resection andretrieval were complete. A 5 mm polyp was found in the transverse colon. The polyp wassessile. The polyp was removed with a cold snare. Resection and retrieval were complete. Internal hemorrhoids were found during retroflexion. Impression: - One 4 mm polyp in the transverse colon, removedwith a jumbo cold forceps. Resected and retrieved. - One 5 mm polyp in the transverse colon, removedwith a cold snare. Resected and retrieved. - Few diverticula - Internal hemorrhoids. Recommendation: - Repeat colonoscopy in 5 years for surveillance. - A polyp or polyps were removed during your colonoscopy today. After the pathology result ofthe polyp(s) is reviewed, the doctor who performedyour colonoscopy will recommend follow-up colonoscopy to you based on current guidelines by gastroenterology societies: - If only small hyperplastic polyps from the rectumor sigmoid were removed, repeat the colonoscopy in 10 years. - If 1 or 2 polyps less than 1 cm in size are adenomas, repeat the colonoscopy in 5 years. - If 3 or more polyps are adenomas, repeat the colonoscopy in 3 years. - If there are 10 or more adenomas, repeat the colonoscopy in 1 year. - If any polyp is 10 mm or greater in size, has villous histology or high grade dysplasia,repeat the colonoscopy in 3 years. - If a polyp greater than 2 cm was removed with a piecemeal technique, repeat the colonoscopy in 6 months to be certain that there is no residualpolyp. - Sessile serrated polyps are treated like adenomas for surveillance purposes. Electronically signed by Anshul Leonard MD PHD Anshul Leonard MD, PHD 01/09/2021 2:25:49 PM Bimal Blancas M.D. Number of Addenda: 0 Note Initiated On: 01/09/2021 1:38 PM Anshul Leonard MD PhD ENDOSCOPY PROCEDURES F inal Result from Last 3 Months or Most Recently Relevant to Health Maintenance Insurance [facility] OTHER [facility] [employer] [facility] HMO/PPO Address: [address] [place] [address] [facility] MEDICARE OOS BLUE ACCESS [facility] [place] Member Subscriber Plan / Payer (Ef fective 2021-Present) Name:Josefa Weaver Relation to Subscriber:Spouse Name:JORDYADILENEDAPHNIE Subscriber ID:Not on file Date of :[birth year]99 Payer ID:[id number] (NAIC) Type:[employer] Address: [id number] CHOICE PLUS [id number] CHOICE PLUS CHOICE PLUS Advance Directives For more information, please contact: [phone] * Full Code (Latest Code Status on File) Date Activated Date Inactivated Comments 01/09/2021 12:43 PM 01/09/2021 7:25 PM Care Teams Sales Coordinator Relationship Specialty Start Date End Date Samuel Brooke DO PCP - General 07/08/16
--- OUTSIDE RECORDS SUMMARY | 2024-10-04 20:14 | XMS_ITS | Encounter Summary ---
Author Organization [facility] Healthcare Address [address] [place] [address] Care Team Providers Care Chemical Dependency Therapist Name Role Phone Samuel Brooke DO Primary Care Provider +1- [phone] Reason for Visit * Diagnostic Imaging (Routine) - Pending Review Specialty Diagnoses / Procedures Referred By Sandra jacobs Referred To Contact Diagnoses Screening mammogram, encounter for Procedures Breast Imaging Diagnostic Outside Reference Referral, Self Referral ID Status Reason Start Date Expiration Date V isits Requested Visits Authorized [id number] Pending Review 05/09/2024 06/08/2025 1 1 Encounter Details Date Type Department Care Team (Late st Contact Info) Description 07/10/2016 Hospital Encounter [facility] [address] [place] [id number] Social History Tobacco Use Types Packs/Day Years [...] CDT Gender Identity Female 05/03/2024 9:50 PM PROGRAM ENGINEER Sexual Orientation Straight 05/03/2024 9: 50 PM PROGRAM ENGINEER documented as of this encounter Functional Status documented as of this encounter Plan of Treatment Not on file documented as of this encounter Procedures Procedure Name Priority Date/Time Associated Diagnosis Comments BREAST IMAGING MG DIAGNOSTIC OUTSIDE REFERENCE Schedule Routine, Read Routine (OP Routine) 07/10/2016 12:00 AM CDT Screening mammogram, encounter for documented in this encounter Results * Breast Imaging Diagnostic Outside Reference (07/10/2016 12:00 AM CDT) Impressions [facility]_M[facility]MO[facility] - 05/09/2024 2:04 PM PROGRAM ENGINEER These images are for Reference purposes only and have not been reviewed by [facility] Radiology. There will be no report generated by a [facility] Radiologist. Narrative [facility]_MAMMO[facility] - 05/09/2024 2:04 PM PROGRAM ENGINEER EXAMINATION: Images For Reference Purposes Only us Self Referral IMG MAMMO PROCEDURES Final Resul t [facility] documented in this encounter Visit Diagnoses Not on filedocumented in this encounter Care Teams Chemical Dependency Therapist Relationship Specialty Start Date End Date Samuel Brooke DO PCP - General 07/08/16 documented as of this encounter
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
--- OUTSIDE RECORDS SUMMARY | 2024-10-04 20:15 | XMS_ITS | Clinical Summary ---
Author Organization [facility] Care Team Providers Care Resistor Coater Name Role Phone Unavailable Primary Care Provider Unavailabl e Social History Tobacco Use Types Packs/Day Years Used Date Smoking Tobacco: Never Assessed Comments Unknown Sex and Gender Information Value Date Recorded Sex Assigned at Not on file Legal Sex Female 12:11 PM HANDLE LATHE OPERATOR Gender Identity Not on file Sexual Orientation Not on file Plan of Treatment Health Maintenance Due Date Last Done Comments Hepatitis C Virus (HCV) Screening 1969 TdaP Immunization 1969 Hepatitis B Immunization (1 of 3 - 19+ 3-dose series) 1988 Pap Smear 1990 Cervical Cancer Screening (CCS) 12/30/1999 HPV/Cotest 12/30/1999 Colonoscopy 2014 Colorectal Cancer Screening 2014 Cologuard 12/30/2019 Immunochemical Fecal Occult Blood 12/30/2019 Mammogram 12/30/2019 Pneumococcal Immunization (5 0+ years) (1 of 1 - PCV) 12/30/2019 Zoster Immunization (1 of 2) 12/30/2019 Influenza Immunization (#1) 2023 SARS-COV-2 Immunization (3 - 2023- season) 2023 07/13/2020, 06/15/2020 Respiratory Syncytial Virus (RSV) Immunization (Adult) (1 - 1-dose 75+ series) 2044 Meningococcal Immunization (ACWY) Aged Out No longer eligible b ased on patient's age to complete this topic Pneumococcal Immunization Combined Aged Out No longer eligible b ased on patient's age to complete this topic Rotavirus Immunization Aged Out No lo nger eligible based on patient's age to complete this topic
--- OUTSIDE RECORDS SUMMARY | 2024-10-04 20:15 | XMS_ITS | Encounter Summary ---
Author Organization [facility] Address [address] [place] [address] Care Team Providers Care Pipe Manufacture Supervisor Name Role Phone Samuel Brooke DO Primary Care Provider +1- [phone] Reason for Visit * Diagnostic Imaging (Routine) - Pending Review Specialty Diagnoses / Procedures Referred By Sandra jacobs Referred To Contact Procedures Breast Imaging US Outside Reference Referral, Self Referral ID Status Reason Start Date Expiration Date V isits Requested Visits Authorized [id number] Pending Review 05/09/2024 06/08/2025 1 1 Encounter Details Date Type Department Care Team (Late st Contact Info) Description 07/10/2016 12:05 AM CDT Hospital Encounter [facility] [address] [place] [id number] Social History Tobacco Use Types Packs/Day Years [...] CDT Gender Identity Female 05/03/2024 9:50 PM SECURITY MANAGEMENT SPECIALIST Sexual Orientation Straight 05/03/2024 9: 50 PM SECURITY MANAGEMENT SPECIALIST documented as of this encounter Functional Status documented as of this encounter Plan of Treatment Not on file documented as of this encounter Procedures Procedure Name Priority Date/Time Associated Diagnosis Comments BREAST IMAGING US OUTSIDE REFERENCE Routine 07/10/2016 12:05 AM CDT documented in this encounter Results * Breast Imaging US Outside Reference (07/10/2016 12:05 AM CDT) Impressions [facility] - 05/09/2024 2:04 PM SECURITY MANAGEMENT SPECIALIST These images are for Reference purposes only and have not been reviewed by [facility]. There will be no report generated by a [facility] Radiologist. Narrative [facility] - 05/09/2024 2:04 PM SECURITY MANAGEMENT SPECIALIST EXAMINATION: Images For Reference Purposes Only us Self Referral IMG MAMMO PROCEDURES Final Resul t [facility] documented in this encounter Visit Diagnoses Not on filedocumented in this encounter Care Teams Pipe Manufacture Supervisor Relationship Specialty Start Date End Date Samuel Brooke DO PCP - General 07/08/16 documented as of this encounter
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
--- OUTSIDE RECORDS SUMMARY | 2024-10-04 20:15 | XMS_ITS | Encounter Summary ---
Author Organization [facility] Address [address] [place] [address] Phone Care Team Providers Care Power Nut Runner Operator Name Role Phone Samuel Brooke DO Primary Care Provider +1- [phone] Encounter Details Date Type Department Care Team (Late st Contact Info) Description 10/03/2024 Documentation [facility] Rheumatology [facility] 5th [place] [address] [place] [address] Sarah Beth Sanchez CMA Social History Tobacco Use Types Packs/Day Years [...] CDT Gender Identity Female 05/03/2024 9:50 PM OIL FIELD PIPELINE SUPERVISOR Sexual Orientation Straight 05/03/2024 9: 50 PM OIL FIELD PIPELINE SUPERVISOR documented as of this encounter Plan of Treatment Not on file documented as of this encounter Visit Diagnoses Not on filedocumented in this encounter Care Teams Power Nut Runner Operator Relationship Specialty Start Date End Date Samuel Brooke DO PCP - General 07/08/16 documented as of this encounter
[2024-10-04 20:26] VITALS: PULSE 92; RESP 18; TEMP 36.5; O2SAT 98
--- OUTSIDE RECORDS SUMMARY | 2024-10-04 21:49 | XMS_ITS | Encounter Summary ---
Author Organization [facility] Healthcare Address [address] [place] [address] Care Team Providers Care Airport Location Manager Name Role Phone Samuel Brooke DO Primary Care Provider +1- [phone] Reason for Visit * Diagnostic Imaging (Routine) - Pending Review Specialty Diagnoses / Procedures Referred By Sandra jacobs Referred To Contact Procedures Breast Imaging Screening Outside Reference Referral, Self Referral ID Status Reason Start Date Expiration Date V isits Requested Visits Authorized [id number] Pending Review 05/09/2024 06/08/2025 1 1 Encounter Details Date Type Department Care Team (Late st Contact Info) Description 02/17/2017 Hospital Encounter [facility] [address] [place] [address] [id number] Social History Tobacco Use Types Packs/Day Years [...] CDT Gender Identity Female 05/03/2024 9:50 PM FENCE SETTER Sexual Orientation Straight 05/03/2024 9: 50 PM FENCE SETTER documented as of this encounter Functional Status documented as of this encounter Plan of Treatment Not on file documented as of this encounter Procedures Procedure Name Priority Date/Time Associated Diagnosis Comments BREAST IMAGING MG SCREENING OUTSIDE REFERENCE Routine 02/17/2017 12:00 AM CDT documented in this encounter Results * Breast Imaging Screening Outside Reference (02/17/2017 12:00 AM CDT) Impressions [facility] - 05/09/2024 2:04 PM FENCE SETTER These images are for Reference purposes only and have not been reviewed by [facility] Radiology. There will be no report generated by a [facility] Radiologist. Narrative [facility] - 05/09/2024 2:04 PM FENCE SETTER EXAMINATION: Images For Reference Purposes Only us Self Referral IMG MAMMO PROCEDURES Final Resul t [facility] documented in this encounter Visit Diagnoses Not on filedocumented in this encounter Care Teams Airport Location Manager Relationship Specialty Start Date End Date Samuel Brooke DO PCP - General 07/08/16 documented as of this encounter
--- OUTSIDE RECORDS SUMMARY | 2024-10-04 21:49 | XMS_ITS | Encounter Summary ---
Author Organization [facility] Address [address] [place] [address] Phone Care Team Providers Care Education Program Associate Name Role Phone Samuel Brooke DO Primary Care Provider +1- [phone] Reason for Referral * Consultation (Routine) - Pending Review Specialty Diagnoses / Procedures Referred By Sandra t Referred To Contact Physical Therapy Diagnoses Chronic right-sided low back pain, unspecified whether sciatica present Franco Silva MD PhD [address] [place] [address] Phone: tel: fax: External Order Referral ID Status Reason Start Date Expiration Date Visits Requested Visits Authorized [id number] Pending Review Specialty Services Required 10/03/2024 11/02/2025 [...] Description 10/03/2024 3:00 PM CDT Office Visit [facility] Rheumatology [facility] 5th [place] [address] [place] [address] Franco Silva MD PhD [address] [place] [address] Chronic right-sided low back pain, [...] CDT Gender Identity Female 05/03/2024 9:50 PM DYNAMO TENDER Sexual Orientation Straight 05/03/2024 9: 50 PM DYNAMO TENDER documented as of this encounter Last Filed [...] Lovett MD - 10/03/2024 3:00 PM CDT [facility] Division of Rheumatology Return [...] 08/14/2024 added in this encounter Care Teams Education Program Associate Relationship Specialty Start Date End Date Samuel Brooke DO PCP - General 07/08/16 documented as of this encounter
--- OUTSIDE RECORDS SUMMARY | 2024-10-04 21:49 | XMS_ITS | Encounter Summary ---
Author Organization [facility] Address [address] [place] [address] Phone Care Team Providers Care Test Automation Architect Name Role Phone Samuel Brooke DO Primary Care Provider +1- [phone] Encounter Details Date Type Department Care Team (Late st Contact Info) Description 10/03/2024 Documentation [facility] Rheumatology [facility] 5th [place] [address] [place] [address] Sarah Beth Sanchez CMA Social [...] CDT Gender Identity Female 05/03/2024 9:50 PM WIRE MACHINE CUTTER Sexual Orientation Straight 05/03/2024 9: 50 PM WIRE MACHINE CUTTER documented as of this encounter Plan of Treatment Not on file documented as of this encounter Visit Diagnoses Not on filedocumented in this encounter Care Teams Test Automation Architect Relationship Specialty Start Date End Date Samuel Brooke DO PCP - General 07/08/16 documented as of this encounter
--- OUTSIDE RECORDS SUMMARY | 2024-10-04 21:49 | XMS_ITS | Referral Summary ---
Author Organization [facility] Address [address] [place] [address] Care Team Providers Care Container Repairer Name Role Phone Samuel Brooke DO Primary Care Provider +1- [phone] Encounters Date Type Department Care Team Description 10/03/2024 Documentation [facility] Rheumatology [address] [place] [address] [place] [address] Sarah Beth Sanchez CMA 10/03/2024 3:00 PM CDT Office Visit [facility] Rheumatology [address] [facility] 5th [place] [address] [place] [address] Franco Silva MD PhD Chronic right-sided low [...] 04/23/2022 Assessment & Plan (04/23/2022 9:39 PM HOT STRIP FINISHER): Discussed more likely related to stress or possibly something she ate, rather than change in levothyroxine. Recommended starting omeprazole 20 mg BID. If no improvement, follow up with PCP. Arthritis 03/09/2022 Assessment & Plan (03/09/2022 3:39 PM HOT STRIP FINISHER): referral to Rheumatology Weight loss counseling, encounter for 10/17/2021 Assessment & Plan (05/25/2022 6:11 PM HOT STRIP FINISHER): Reviewed calorie restriction based on BMR as previously detailed. Reviewed recommendation/goal of >/= 150 minutes/week moderate-intensity aerobic exercise. Asked to try to track consistently with ED01 It juliann for at least 1 week to help identify calorie/carb/protein intake. Commended for weight loss to date. Assessment & Plan (04/23/2022 9:26 PM HOT STRIP FINISHER): Reviewed calorie restriction based on BMR as [...] 4.2 Assessment & Plan (05/25/2022 6:12 PM HOT STRIP FINISHER): Continue low-carb (<150 g/day), low-glycemic diet. With IR confirmed per MARIA LUISA-IR score of 4.2 will start Metformin XR 500mg -- take 1 tablet daily for the 1st week, then increase to 2 tablets daily if tolerating. Discussed rationale in setting of insulin resistance. Discussed risks, benefits, alternatives, and potential side effects. Assessment & Plan (04/23/2022 9:45 PM HOT STRIP FINISHER): Reviewed labs with her. Continue low-carb (<150 [...] w/r/t gut microbiome. Referred to ADA and [employer] websites for additional information on topics including glycemic index/carbohydrate choices, protein sources. More detailed recommendations pending review of labs and food record. Fatigue 10/17/2021 Assessment & Plan (05/25/2022 6:13 PM HOT STRIP FINISHER): Seems improved somewhat, continues to work on [...] 03/17/2021 Assessment & Plan (05/25/2022 6:13 PM HOT STRIP FINISHER): Obesity is improving with treatment. Diet interventions: as noted. Regular aerobic exercise program discussed. Plan- Start pharmacotherapy. Continue diet/exercise interventions as discussed. Schedule follow up with Dr. Palomares in 3 months. Assessment & Plan (04/23/2022 9:37 PM HOT STRIP FINISHER): Obesity is improving.. Plan: Diet interventions: as noted.. and Regular aerobic exercise program discussed. Assessment & Plan (03/09/2022 3:39 PM HOT STRIP FINISHER): Discussed lifestyle changes Scheduled with weight management clinic next month Has been working with toll collector supervisor Assessment & Plan (03/17/2021 3:50 PM HOT STRIP FINISHER): Discussed lifestyle changes Will refer to weight management clinic given her BMI Post-surgical hypothyroidism 03/06/2019 Assessment & Plan (07/27/2023 5:23 PM CDT): Continue current levothyroxine dose. TSH goal normal range Assessment & Plan (03/09/2022 3:13 PM HOT STRIP FINISHER): Continue current levothyroxine dose. Will check thyroid function test and adjust levothyroxine dose accordingly. TSH goal lower normal range Assessment & Plan (03/17/2021 3:51 PM HOT STRIP FINISHER): Continue current levothyroxine dose. Will check thyroid function test and adjust levothyroxine dose accordingly. Assessment & Plan (03/04/2020 3:37 PM HOT STRIP FINISHER): Continue current levothyroxine dose. Will check thyroid function test and adjust levothyroxine dose accordingly. Assessment & Plan (03/06/2019 8:46 AM HOT STRIP FINISHER): Continue current levothyroxine dose. Will check thyroid function test and adjust levothyroxine dose accordingly. Prolactin increased 03/06/2019 Assessment & Plan (03/06/2019 8:47 AM HOT STRIP FINISHER): Asked for outside pituitary MRI Will check PRL level Discussed other causes of high prolactin and If/ when treatment is indicated Menstrual cramps 03/06/2019 Assessment & Plan (03/06/2019 8:46 AM HOT STRIP FINISHER): Will refer to FOAM RUBBER MIXER for evaluation of heavy bleeding Thyroid cancer 09/29/2018 Assessment & Plan (03/06/2019 8:46 AM HOT STRIP FINISHER): No evidence of tumor recurrence on biochemical [...] markers. Assessment & Plan (03/09/2022 3:38 PM HOT STRIP FINISHER): No evidence of tumor recurrence on biochemical and radiological data so far Low risk micro-papillary thyroid cancer TSH goal lower normal Biochemical evaluation with thyroid tumor markers. 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 If above are in acceptable range, will plan follow-up on yearly basis Assessment & Plan (03/04/2020 3:37 PM HOT STRIP FINISHER): No evidence of tumor recurrence on biochemical [...] CDT Gender Identity Female 05/03/2024 9:50 PM HOT STRIP FINISHER Sexual Orientation Straight 05/03/2024 9: 50 PM HOT STRIP FINISHER Last Filed Vital Signs Vital Sign Reading [...] Read Routine (OP Routine) 05/06/2024 2:08 PM HOT STRIP FINISHER Screening mammogram, encounter for COLONOSCOPY 01/09/2021 1:38 PM CDT from Last 3 Months or Most Recently Relevant to Health Maintenance Results * Screening Mammogram Bilateral W Lv (05/06/2024 2:08 PM HOT STRIP FINISHER) Anatomical Region Laterality Modality Breast Bilateral Mammography Narrative 05/09/2024 4:01 PM HOT STRIP FINISHER Mammogram Technique: Bilateral Digital Breast Tomosynthesis, Bilateral C-view 2D Screening mammogram. Views obtained: bilateral craniocaudal and bilateral mediolateral oblique. Computer Aided Detection was performed. Mammogram Findings: The present examination has been compared to prior imaging studies performed at [facility] on 07/10/2016, 01/18/2017 and 02/17/2017. The [...] compared to prior imaging studies performed at [facility] on 07/10/2016, 01/18/2017 and 02/17/2017. The [...] Female Attending MD: Anshul Leonard MD,PHD Room: [facility] ENDOSCOPY ROOM 01 Note Status: Finalized Procedure: [...] The scope was passed under direct vision.The [id number] was introduced through the anusand advanced to the cecum, identified by appendiceal orifice and ileocecal valve. The colonoscopy was performed with ease. The patient tolerated the procedure well. The quality of the bowelpreparation was evaluated using the BBPS ([place] BowelPreparation Scale) with scores of: Right Colon [...] Most Recently Relevant to Health Maintenance Insurance [facility] OTHER [facility] H[facility]/PPO Address: [address] [place] [address] [facility] OOS Member Subscriber Plan / Payer ( fective 2020-Present) Name:Owen Josefa Lazo Relation to Subscriber:Spouse Name:DAPHNIE WEAVER Subscriber ID:Not on file Date of :1963 Payer ID:[id number] (NAIC) Type:MEDICARE RISK OTHER Address: [address] OOS Member Subscriber Plan / Payer ( fective 2020-Present) Name:Owen Josefa H Relation to Subscriber:Self Name:Owen Josefa H Payer ID:[id number] (NAIC) Type:[employer] Address: [address] [place] Member Subscriber Plan / Payer ( fective 2021-Present) Name:Josefa Weaver Relation to Subscriber:Spouse Name:JORDYDAPHNIE HEAD L Subscriber ID:Not on file Date of :1900 Payer ID:[id number] (NAIC) Type:[employer] Address: [address] CHOICE PLUS CHOICE PLUS CHOICE PLUS Advance Directives For more information, please contact: [phone] * Full Code (Latest Code Status on File) Date Activated Date Inactivated Comments 01/09/2021 12:43 PM 01/09/2021 7:25 PM Care Teams Container Repairer Relationship Specialty Start Date End Date Samuel Brooke DO PCP - General 07/08/16
--- OUTSIDE RECORDS SUMMARY | 2024-10-04 21:49 | XMS_ITS | Clinical Summary ---
Author Organization [facility] Address [address] [place] [address] Care Team Providers Care Surface Water Technician Name Role Phone Samuel Brooke DO Primary Care Provider +1- [phone] Source Comments [facility],non-owned Affiliates and Associated Physician Practices is amultiple site organization consisting of ambulatory clinics and hospital sitesin [place], [place], [place] and [place]. This disclosure is being madepursuant to the Care Everywhere program and may not contain all information available regarding this patient. Last updated 18.[facility] [employer] Allergies Active Allergy Reactions Criticality Noted Date [...] on file Legal Sex Female 9:44 PM CHANNEL SALES MANAGER Gender Identity Not on file Sexual Orientation Not on file Last Filed Vital Signs Vital Sign Reading Time Taken Comments Blood Pressure 122/68 04/02/2018 11:05 AM CHANNEL SALES MANAGER Pulse 81 04/02/2018 11:05 AM CHANNEL SALES MANAGER Temperature 36.4 C (97.6 F) 04/02/2018 11:05 AM CHANNEL SALES MANAGER Respiratory Rate 16 04/02/2018 11:05 AM CHANNEL SALES MANAGER Oxygen Saturation 98% 04/02/2018 11:05 AM CHANNEL SALES MANAGER Inhaled Oxygen Concentration - - Weight 97.5 kg (215 lb) 04/02/2018 11:05 AM CHANNEL SALES MANAGER Height 157.5 cm (5' 2) 04/02/2018 11:05 AM CHANNEL SALES MANAGER Body Mass Index 39.32 04/02/2018 11:05 AM CHANNEL SALES MANAGER Plan of Treatment Health Maintenance Due Date [...] age to complete this topic Care Teams Surface Water Technician Relationship Specialty Start Date End Date Samuel Brooke DO PCP - General Internal Medicine 04/02/18
--- OUTSIDE RECORDS SUMMARY | 2024-10-04 21:49 | XMS_ITS | Encounter Summary ---
Author Organization [facility] Healthcare Address [address] [place] [address] Care Team Providers Care Social Work Associate Name Role Phone Samuel Brooke DO Primary Care Provider +1- [phone] Reason for Visit * Diagnostic Imaging (Routine) - Pending Review Specialty Diagnoses / Procedures Referred By Sandra jacobs Referred To Contact Procedures Breast Imaging US Outside Reference Referral, Self Referral ID Status Reason Start Date Expiration Date V isits Requested Visits Authorized [id number] Pending Review 05/09/2024 06/08/2025 1 1 Encounter Details Date Type Department Care Team (Late st Contact Info) Description 07/10/2016 12:05 AM CDT Hospital Encounter [facility] Radiology [facility] [address] [place] [address] Social History Tobacco Use Types Packs/Day Years [...] CDT Gender Identity Female 05/03/2024 9:50 PM SAFETY COORDINATOR Sexual Orientation Straight 05/03/2024 9: 50 PM SAFETY COORDINATOR documented as of this encounter Functional Status documented as of this encounter Plan of Treatment Not on file documented as of this encounter Procedures Procedure Name Priority Date/Time Associated Diagnosis Comments BREAST IMAGING US OUTSIDE REFERENCE Routine 07/10/2016 12:05 AM CDT documented in this encounter Results * Breast Imaging US Outside Reference (07/10/2016 12:05 AM CDT) Impressions [facility] - 05/09/2024 2:04 PM SAFETY COORDINATOR These images are for Reference purposes only and have not been reviewed by [facility] Radiology. There will be no report generated by a [facility] Radiologist. Narrative [facility] - 05/09/2024 2:04 PM SAFETY COORDINATOR EXAMINATION: Images For Reference Purposes Only us Self Referral IMG MAMMO PROCEDURES Final Resul t [facility] documented in this encounter Visit Diagnoses Not on filedocumented in this encounter Care Teams Social Work Associate Relationship Specialty Start Date End Date Samuel Brooke DO PCP - General 07/08/16 documented as of this encounter
--- OUTSIDE RECORDS SUMMARY | 2024-10-04 21:49 | XMS_ITS | Clinical Summary ---
Author Organization [facility] Care Team Providers Care Customer Service Leader Name Role Phone Unavailable Primary Care Provider Unavailabl e Social History Tobacco Use Types Packs/Day Years Used Date Smoking Tobacco: Never Assessed Comments Unknown Sex and Gender Information Value Date Recorded Sex Assigned at Not on file Legal Sex Female 12:11 PM FILTER TENDER JELLY Gender Identity Not on file Sexual Orientation [...]
--- OUTSIDE RECORDS SUMMARY | 2024-10-04 21:49 | XMS_ITS | Encounter Summary ---
Author Organization [facility] Healthcare Address [address] [place] [address] Care Team Providers Care Community Ambassador Name Role Phone Samuel Brooke DO Primary Care Provider +1- [phone] Reason for Visit * Diagnostic Imaging (Routine) - Pending Review Specialty Diagnoses / Procedures Referred By Sandra jacobs Referred To Contact Procedures Breast Imaging Diagnostic Outside Reference Referral, Self Referral ID Status Reason Start Date Expiration Date V isits Requested Visits Authorized [id number] Pending Review 05/09/2024 06/08/2025 1 1 Encounter Details Date Type Department Care Team (Late st Contact Info) Description 01/18/2017 Hospital Encounter [facility] Radiology [facility] [address] [place] [id number] Social History Tobacco Use Types Packs/Day Years [...] CDT Gender Identity Female 05/03/2024 9:50 PM HAND COLLATOR Sexual Orientation Straight 05/03/2024 9: 50 PM HAND COLLATOR documented as of this encounter Functional Status documented as of this encounter Plan of Treatment Not on file documented as of this encounter Procedures Procedure Name Priority Date/Time Associated Diagnosis Comments BREAST IMAGING MG DIAGNOSTIC OUTSIDE REFERENCE Routine 01/18/2017 12:00 AM CDT documented in this encounter Results * Breast Imaging Diagnostic Outside Reference (01/18/2017 12:00 AM CDT) Impressions [facility] - 05/09/2024 2:04 PM HAND COLLATOR These images are for Reference purposes only and have not been reviewed by [facility] Radiology. There will be no report generated by a [facility] Radiologist. Narrative [facility] - 05/09/2024 2:04 PM HAND COLLATOR EXAMINATION: Images For Reference Purposes Only us Self Referral IMG MAMMO PROCEDURES Final Resul t [facility] documented in this encounter Visit Diagnoses Not on filedocumented in this encounter Care Teams Community Ambassador Relationship Specialty Start Date End Date Samuel Brooke DO PCP - General 07/08/16 documented as of this encounter
--- OUTSIDE RECORDS SUMMARY | 2024-10-04 21:49 | XMS_ITS | Clinical Summary ---
Author Organization [facility] Address [address] [place] [address] Care Team Providers Care Back Strip Machine Operator Name Role Phone Samuel Brooke DO Primary Care Provider +1- [phone] Allergies Active Allergy Reactions Criticality Noted Date [...] 04/23/2022 Assessment & Plan (04/23/2022 9:39 PM ENVELOPE SEALER): Discussed more likely related to stress or possibly something she ate, rather than change in levothyroxine. Recommended starting omeprazole 20 mg BID. If no improvement, follow up with PCP. Arthritis 03/09/2022 Assessment & Plan (03/09/2022 3:39 PM ENVELOPE SEALER): referral to Rheumatology Weight loss counseling, encounter for 10/17/2021 Assessment & Plan (05/25/2022 6:11 PM ENVELOPE SEALER): Reviewed calorie restriction based on BMR as previously detailed. Reviewed recommendation/goal of >/= 150 minutes/week moderate-intensity aerobic exercise. Asked to try to track consistently with [employer] It juliann for at least 1 week to help identify calorie/carb/protein intake. Commended for weight loss to date. Assessment & Plan (04/23/2022 9:26 PM ENVELOPE SEALER): Reviewed calorie restriction based on BMR as [...] 4.2 Assessment & Plan (05/25/2022 6:12 PM ENVELOPE SEALER): Continue low-carb (<150 g/day), low-glycemic diet. With IR confirmed per MARIA LUISA-IR score of 4.2 will start Metformin XR 500mg -- take 1 tablet daily for the 1st week, then increase to 2 tablets daily if tolerating. Discussed rationale in setting of insulin resistance. Discussed risks, benefits, alternatives, and potential side effects. Assessment & Plan (04/23/2022 9:45 PM ENVELOPE SEALER): Reviewed labs with her. Continue low-carb (<150 [...] w/r/t gut microbiome. Referred to ADA and [facility] websites for additional information on topics including glycemic index/carbohydrate choices, protein sources. More detailed recommendations pending review of labs and food record. Fatigue 10/17/2021 Assessment & Plan (05/25/2022 6:13 PM ENVELOPE SEALER): Seems improved somewhat, continues to work on [...] 03/17/2021 Assessment & Plan (05/25/2022 6:13 PM ENVELOPE SEALER): Obesity is improving with treatment. Diet interventions: as noted. Regular aerobic exercise program discussed. Plan- Start pharmacotherapy. Continue diet/exercise interventions as discussed. Schedule follow up with Dr. Palomares in 3 months. Assessment & Plan (04/23/2022 9:37 PM ENVELOPE SEALER): Obesity is improving.. Plan: Diet interventions: as noted.. and Regular aerobic exercise program discussed. 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 TSH goal normal range Assessment & Plan (03/09/2022 3:13 PM ENVELOPE SEALER): Continue current levothyroxine dose. Will check thyroid function test and adjust levothyroxine dose accordingly. TSH goal lower normal range Assessment & Plan (03/17/2021 3:51 PM ENVELOPE SEALER): Continue current levothyroxine dose. Will check thyroid function test and adjust levothyroxine dose accordingly. Assessment & Plan (03/04/2020 3:37 PM ENVELOPE SEALER): Continue current levothyroxine dose. Will check thyroid function test and adjust levothyroxine dose accordingly. Assessment & Plan (03/06/2019 8:46 AM ENVELOPE SEALER): Continue current levothyroxine dose. Will check thyroid function test and adjust levothyroxine dose accordingly. Prolactin increased 03/06/2019 Assessment & Plan (03/06/2019 8:47 AM ENVELOPE SEALER): Asked for outside pituitary MRI Will check PRL level Discussed other causes of high prolactin and If/ when treatment is indicated Menstrual cramps 03/06/2019 Assessment & Plan (03/06/2019 8:46 AM ENVELOPE SEALER): Will refer to [employer] for evaluation of heavy bleeding Thyroid cancer 09/29/2018 Assessment & Plan (03/06/2019 8:46 AM ENVELOPE SEALER): No evidence of tumor recurrence on biochemical [...] markers. Assessment & Plan (03/09/2022 3:38 PM ENVELOPE SEALER): No evidence of tumor recurrence on biochemical and radiological data so far Low risk micro-papillary thyroid cancer TSH goal lower normal Biochemical evaluation with thyroid tumor markers. Assessment & Plan (03/17/2021 3:51 PM ENVELOPE SEALER): No evidence of tumor recurrence on biochemical and radiological data so far Low risk micro-papillary thyroid cancer TSH goal lower normal, given patient weight gain, she'd like to keep her TSH suppressed Biochemical evaluation with thyroid tumor markers. If above are in acceptable range, will plan follow-up on yearly basis Assessment & Plan (03/04/2020 3:37 PM ENVELOPE SEALER): No evidence of tumor recurrence on biochemical [...] Description 10/03/2024 3:00 PM CDT Office Visit [facility] Rheumatology [address] [place] [address] [place] [id number] Franco Silva MD PhD Chronic right-sided low back pain, unspecified whether sciatica present (Primary Dx); Arthritis 10/03/2024 Documentation [facility] Rheumatology [address] [place] [address] [place] [id number] Sarah Beth Sanchez CMA from Last 3 [...] CDT Gender Identity Female 05/03/2024 9:50 PM ENVELOPE SEALER Sexual Orientation Straight 05/03/2024 9: 50 PM ENVELOPE SEALER Obstetrics History Para Term AB IAB SAB [...] Read Routine (OP Routine) 05/06/2024 2:08 PM ENVELOPE SEALER Screening mammogram, encounter for COLONOSCOPY 01/09/2021 1:38 PM CDT from Last 3 Months or Most Recently Relevant to Health Maintenance Results * Screening Mammogram Bilateral W Lv (05/06/2024 2:08 PM ENVELOPE SEALER) Anatomical Region Laterality Modality Breast Bilateral Mammography Narrative 05/09/2024 4:01 PM ENVELOPE SEALER Mammogram Technique: Bilateral Digital Breast Tomosynthesis, Bilateral C-view 2D Screening mammogram. Views obtained: bilateral craniocaudal and bilateral mediolateral oblique. Computer Aided Detection was performed. Mammogram Findings: The present examination has been compared to prior imaging studies performed at [facility] on 07/10/2016, 01/18/2017 and 02/17/2017. The [...] compared to prior imaging studies performed at [facility] on 07/10/2016, 01/18/2017 and 02/17/2017. The [...] Female Attending MD: Anshul Leonard MD,PHD Room: [facility] ENDOSCOPY ROOM 01 Note Status: Finalized Procedure: [...] The scope was passed under direct vision.The [id number] was introduced through the anusand advanced to the cecum, identified by appendiceal orifice and ileocecal valve. The colonoscopy was performed with ease. The patient tolerated the procedure well. The quality of the bowelpreparation was evaluated using the BBPS (Riva BowelPreparation Scale) with scores of: Right Colon [...] Most Recently Relevant to Health Maintenance Insurance [facility] CARE OTHER [facility] Comm[employer]ve [facility] MEDICARE OOS BLUE ACCESS [facility] [place] Member Subscriber Plan / Payer (Ef fective 2021-Present) Name:Josefa Weaver Relation to Subscriber:Spouse Name:JORDYADILENEDAPHNIE Subscriber ID:Not on file Date of :1900 Payer ID:[id number] (NAIC) Type:Numerate Address: [address] CHOICE PLUS [id number] CHOICE PLUS CHOICE PLUS Advance Directives For more information, please contact: [phone] * Full Code (Latest Code Status on File) Date Activated Date Inactivated Comments 01/09/2021 12:43 PM 01/09/2021 7:25 PM Care Teams Back Strip Machine Operator Relationship Specialty Start Date End Date Samuel Brooke DO PCP - General 07/08/16
--- OUTSIDE RECORDS SUMMARY | 2024-10-04 21:49 | XMS_ITS | Encounter Summary ---
Author Organization [facility] Healthcare Address [address] [place] [address] Care Team Providers Care Mobility Architect Manager Name Role Phone Samuel Brooke DO Primary Care Provider +1- [phone] Reason for Visit * Diagnostic Imaging (Routine) - Pending Review Specialty Diagnoses / Procedures Referred By Sandra jacobs Referred To Contact Diagnoses Screening mammogram, encounter for Procedures Breast Imaging Diagnostic Outside Reference Referral, Self Referral ID Status Reason Start Date Expiration Date V isits Requested Visits Authorized [id number] Pending Review 05/09/2024 06/08/2025 1 1 Encounter Details Date Type Department Care Team (Late st Contact Info) Description 07/10/2016 Hospital Encounter [facility] [address] [place] [id number] Social History Tobacco Use Types Packs/Day Years [...] CDT Gender Identity Female 05/03/2024 9:50 PM UNDERTAKER ASSISTANT Sexual Orientation Straight 05/03/2024 9: 50 PM UNDERTAKER ASSISTANT documented as of this encounter Functional Status [...] CDT) Impressions [facility] - 05/09/2024 2:04 PM UNDERTAKER ASSISTANT These images are for Reference purposes only and have not been reviewed by [facility]iology. There will be no report generated by a [facility] Radiologist. Narrative [facility] - 05/09/2024 2:04 PM UNDERTAKER ASSISTANT EXAMINATION: Images For Reference Purposes Only us Self Referral IMG MAMMO PROCEDURES Final Resul t [facility] documented in this encounter Visit Diagnoses Not on filedocumented in this encounter Care Teams Mobility Architect Manager Relationship Specialty Start Date End Date Samuel Brooke DO PCP - General 07/08/16 documented as of this encounter
--- NOTE | 2024-10-04 22:31 | ED.LOWEXIN ---
HPI - Extremity Injury (Lower) General Chief Complaint: Extremity Injury, Lower Stated Complaint: L great toe injury Time Seen by Provider: 10/04/24 21:26 History of Present Illness HPI Narrative: Patient is a 53-year-old female who presents to the ER with complaints of left toe pain. She reports yesterday she was opening a gate in a Courtyard when she tripped over a cement stair. Patient endorses pain, tingling, and discomfort to her left great toe and both dorsal and plantar surfaces the top 3rd her left foot. She reports her tetanus shot is up-to-date. Patient denies any medical history, including diabetes or gout. She denies any recent fevers, decreased range of motion or history injury to that site. Related Data Home Medications ?Medication ?Instructions ?Recorded ?Confirmed ?Last Taken ?Type levothyroxine 175 mcg tablet 175 mcg PO DAILY 02/03/23 08/14/24 Unknown History (Synthroid) Allergies Allergy/AdvReac Type Severity Reaction Status Date / Time peanut Allergy Severe ANAPHYLAXIS Verified 10/04/24 20:13 red dye Allergy Dizziness Verified 10/04/24 20:13 shellfish derived AdvReac Severe FAULKNER/NAUSEA Verified 10/04/24 20:13 SEAFOOD AND SHELLFISH adhesive AdvReac Intermediate BLISTERS,SKIN Verified 10/04/24 20:13 PEELING doxycycline AdvReac Intermediate HALLUCINATI Verified 10/04/24 20:13 ONS naproxen AdvReac Intermediate Unknown Verified 10/04/24 20:13 tetracycline AdvReac Intermediate VISUAL Verified 10/04/24 20:13 DISTRUBANCE Review of Systems Review of Systems: All systems reviewed & are unremarkable except as noted in HPI and below PMFSH Past Medical History Medical History Anxiety and depression Hypothyroidism (acquired) Chronic sinusitis Thyroid cancer 2017 Surgical History Surgical History History of hysteroscopy History of arthroscopy of knee H/O thyroidectomy 2016 Family History Family History Father CAD (coronary artery disease) Type 2 diabetes mellitus Thyroid disease Mother Type 2 diabetes mellitus Hypertension Sibling Thyroid cancer Other Depression Diabetes mellitus Family history of arthritis Family history of hearing loss Social History Social History Smoking status: Never smoker Alcohol intake: current Substance use: never Substance use type: does not use Do You Feel Safe in your Home?: Yes Lack of Transportation: No Lack of Food: Sometimes True Current Housing: I Have Housing Concerned About Future Housing: No Difficulty Paying Gas/Electric Bills: Decline to Answer Difficulty Paying for Meds: No Currently Unemployed: No Education: Master's Degree or Higher Difficulty w/ Childcare or Family Care: No Living arrangements: alone Occupation/Education: unemployed Gender identity (if verbalized by the patient): Female Agree to blood products: Yes Exam Narrative: GENERAL: Well appearing, well-nourished, non-toxic, in no acute distress. HEAD: Normocephalic, atraumatic. NECK: Supple. No adenopathy, no masses. RESPIRATORY: Airway patent, respirations nonlabored. Clear to auscultation bilaterally, no rales, rhonchi, wheezing. CARDIOVASCULAR: Regular rate and rhythm without murmurs, rubs, or gallops. Peripheral pulses 2+ and equal bilaterally. ABDOMINAL: Soft, nontender, nondistended, no hepatosplenomegaly. Normoactive BS. MUSCULOSKELETAL: Moves all extremities. Strength/ROM intact without gross deformities. SKIN: Warm, dry, normal color. No rashes. L great toe abrasion, pink/redness in dorsal and plantar surfaces the top 3rd her left foot NEURO: A&O X3. Speech clear. Cranial nerves II-XII intact. No ataxic movements. PSYCHIATRIC: Appropriate mood and affect. Normal interaction. Course Vital Signs Vital signs: Vital Signs Temperature 36.5 C 10/04/24 20: Pulse Rate 92 10/04/24 20:26 Respiratory Rate 18 10/04/24 20:26 Pulse Oximetry 98 10/04/24 20:26 Oxygen Delivery Room Air 10/04/24 20:26 Temperature 36.5 C 10/04/24 20: Pulse Rate 92 10/04/24 20:26 Respiratory Rate 18 10/04/24 20:26 Pulse Oximetry 98 10/04/24 20:26 Oxygen Delivery Room Air 10/04/24 20:26 MDM - Extremity Injury (Lower) MDM Narrative Medical decision making narrative: Patient is a 53-year-old female who presents to the ER with complaints of left toe pain. She reports yesterday she was opening a gate in a Courtyard when she tripped over a cement stair. Patient endorses pain, tingling, and discomfort to her left great toe and both dorsal and plantar surfaces the top 3rd her left foot. She reports her tetanus shot is up-to-date. Patient denies any medical history, including diabetes or gout. She denies any recent fevers, decreased range of motion or history injury to that site. Imaging Ordered: Left foot x-ray Medications Ordered: Toradol 60 mg IM Results: Left foot x-ray indicates no acute osseous abnormality Diagnosis: Left great toe abrasion, left toe sprain Patient Education/Shared MDM: Results of imaging shared with patient. She was placed in a walking boot for comfort head time of discharge. Patient will also be given a shot of IM Toradol to help decrease swelling and improve pain. Patient strongly advised to rest the affected extremity and follow-up with their PCP as needed. She will not be discharged home with any new prescriptions. Strict return precautions provided. Patient verbalized understanding and is in agreement with plan. Vital signs stable at time of discharge. All questions answered. Differential Diagnosis Differential diagnosis: Likely ankle sprain and strain, fracture of toe and other (Toe abrasion, toe sprain) Imaging Data Attestation: I personally reviewed and interpreted this imaging study as follows: Radiologist's impression: Impressions Foot X-Ray 10/04/24 21:49 IMPRESSION: No acute osseous abnormality left foot. Discharge Plan Discharge Clinical Impression: Sprain of left great toe, Abrasion of great toe, left Patient Disposition: Home Condition: Stable Instructions: Antibiotic Form Additional Instructions: Please return to the ER with any worsening symptoms. Follow-up with primary care provider as needed. Take all regularly prescribed medications. He may take Tylenol and ibuprofen together for pain control. Patient Language: Swedish Prescriptions: No Action levothyroxine [Synthroid] 175 mcg tablet 175 mcg PO DAILY sertraline 50 mg tablet 50 mg PO DAILY Qty: 90 0RF Rx Instructions: Take with 100 mg tablets to equal 150 mg. triamcinolone acetonide 0.1 % ointment 1 applic topical BID Qty: 15 0RF Follow-up/Referrals: Yablonsky,Samuel B., DO [Primary Care Provider] - Time of Disposition: 22:42
[2024-10-04] MEDS: KETOROLAC (*BKC) 60 MG/2 ML VIAL IM (22:42)
== END 2024-10-04 22:54 | disposition home or self-care (01) ==
PROVIDERS: Emergency Provider Registered Nurse; PCP Internal Medicine
DX: S93.502A Unspecified sprain of left great toe, initial encounter (principal); S90.412A Abrasion, left great toe, initial encounter; E89.0 Postprocedural hypothyroidism; F41.9 Anxiety disorder, unspecified; Z85.850 Personal history of malignant neoplasm of thyroid; F32.A Depression, unspecified; Z79.899 Other long term (current) drug therapy; W22.8XXA Striking against or struck by other objects, initial encounter
CPT/HCPCS: 73630; 96372; 99283; J1885

== ENCOUNTER 2024-11-16 10:15 | Emergency (ER) | payer OTHER, SELFPAY ==
--- NOTE | ~2024-11-16 | XR_ITS ---
EXAM/ PROCEDURE: XR ankle RT min 3V - 11/16/2024 11:30 CDT HISTORY: 53 years old Female with right ankle pain, fall COMPARISON: None available TECHNIQUE: Four view(s) FINDINGS/ IMPRESSION: There are no fractures or dislocations.Joint space narrowing, subchondral sclerosis, subchondral cyst formation and osteophyte formation, compatible with mild osteoarthritis. Calcaneal enthesopathy. Mil d diffuse soft tissue swelling. Reviewed, dictated and finalized at location A.
--- OUTSIDE RECORDS SUMMARY | 2024-11-16 10:20 | XMS_ITS | Encounter Summary ---
Author Organization [facility] Address [address] [place] [address] Phone Care Team Providers Care Nitric Acid Concentrator Operator Name Role Phone Samuel Brooke DO Primary Care Provider +1- [phone] Encounter Details Date Type Department Care Team (Late st Contact Info) Description 10/03/[address] [facility] Rheumatology [facility] [facility] [address] [place] [address] [place] [address] Sarah Beth Sanchez CMA Social [...] CDT Gender Identity Female 05/03/2024 9:50 PM TEACHING ASSISTANT Sexual Orientation Straight 05/03/2024 9: 50 PM TEACHING ASSISTANT documented as of this encounter Plan of Treatment Not on file documented as of this encounter Visit Diagnoses Not on filedocumented in this encounter Care Teams Nitric Acid Concentrator Operator Relationship Specialty Start Date End Date Samuel Brooke DO PCP - General 07/08/16 documented as of this encounter
--- OUTSIDE RECORDS SUMMARY | 2024-11-16 10:20 | XMS_ITS | Clinical Summary ---
Author Organization [facility] Care Team Providers Care Cabbage Salter Name Role Phone Unavailable Primary Care Provider Unavailabl e Social History Tobacco Use Types Packs/Day Years Used Date Smoking Tobacco: Never Assessed Comments Unknown Sex and Gender Information Value Date Recorded Sex Assigned at Not on file Legal Sex Female 12:11 PM COIN COUNTER AND WRAPPER Gender Identity Not on file Sexual Orientation [...]
--- OUTSIDE RECORDS SUMMARY | 2024-11-16 10:20 | XMS_ITS | Encounter Summary ---
Author Organization [facility] Healthcare Address [address] [place] [address] Care Team Providers Care Director Paid Media Name Role Phone Samuel Brooke DO Primary Care Provider +1- [phone] Reason for Visit * Diagnostic Imaging (Routine) - Pending Review Specialty Diagnoses / Procedures Referred By Sandra jacobs Referred To Contact Procedures Breast Imaging Screening Outside Reference Referral, Self Referral ID Status Reason Start Date Expiration Date V isits Requested Visits Authorized [id number] Pending Review 05/09/2024 06/08/2025 1 1 Encounter Details Date Type Department Care Team (Late st Contact Info) Description 02/17/2017 Hospital Encounter [facility] [address] [place] [id number] Social History Tobacco Use Types Packs/Day Years [...] CDT Gender Identity Female 05/03/2024 9:50 PM RECAPPER Sexual Orientation Straight 05/03/2024 9: 50 PM RECAPPER documented as of this encounter Functional Status documented as of this encounter Plan of Treatment Not on file documented as of this encounter Procedures Procedure Name Priority Date/Time Associated Diagnosis Comments BREAST IMAGING MG SCREENING OUTSIDE REFERENCE Routine 02/17/2017 12:00 AM CDT documented in this encounter Results * Breast Imaging Screening Outside Reference (02/17/2017 12:00 AM CDT) Impressions [facility] - 05/09/2024 2:04 PM RECAPPER These images are for Reference purposes only and have not been reviewed by [facility]. There will be no report generated by a [facility] Radiologist. Narrative [facility] - 05/09/2024 2:04 PM RECAPPER EXAMINATION: Images For Reference Purposes Only us Self Referral IMG MAMMO PROCEDURES Final Resul t [facility] documented in this encounter Visit Diagnoses Not on filedocumented in this encounter Care Teams Director Paid Media Relationship Specialty Start Date End Date Samuel Brooke DO PCP - General 07/08/16 documented as of this encounter
--- OUTSIDE RECORDS SUMMARY | 2024-11-16 10:20 | XMS_ITS | Encounter Summary ---
Author Organization [facility] Healthcare Address [address] [place] [address] Care Team Providers Care Shipping And Receiving Assistant Name Role Phone Samuel Brooke DO Primary Care Provider +1- [phone] Reason for Visit * Diagnostic Imaging (Routine) - Pending Review Specialty Diagnoses / Procedures Referred By Sandra jacobs Referred To Contact Procedures Breast Imaging US Outside Reference Referral, Self Referral ID Status Reason Start Date Expiration Date V isits Requested Visits Authorized [id number] Pending Review 05/09/2024 06/08/2025 1 1 Encounter Details Date Type Department Care Team (Late st Contact Info) Description 07/10/2016 12:05 AM CDT Hospital Encounter [facility] [address] [place] [id number] Social History Tobacco Use Types Packs/Day Years [...] CDT Gender Identity Female 05/03/2024 9:50 PM OPTICAL STORE MANAGER Sexual Orientation Straight 05/03/2024 9: 50 PM OPTICAL STORE MANAGER documented as of this encounter Functional Status documented as of this encounter Plan of Treatment Not on file documented as of this encounter Procedures Procedure Name Priority Date/Time Associated Diagnosis Comments BREAST IMAGING US OUTSIDE REFERENCE Routine 07/10/2016 12:05 AM CDT documented in this encounter Results * Breast Imaging US Outside Reference (07/10/2016 12:05 AM CDT) Impressions [facility] - 05/09/2024 2:04 PM OPTICAL STORE MANAGER These images are for Reference purposes only and have not been reviewed by [facility] Radiology. There will be no report generated by a [facility] Radiologist. Narrative [facility] - 05/09/2024 2:04 PM OPTICAL STORE MANAGER EXAMINATION: Images For Reference Purposes Only us Self Referral IMG MAMMO PROCEDURES Final Resul t [facility] documented in this encounter Visit Diagnoses Not on filedocumented in this encounter Care Teams Shipping And Receiving Assistant Relationship Specialty Start Date End Date Samuel Brooke DO PCP - General 07/08/16 documented as of this encounter
--- OUTSIDE RECORDS SUMMARY | 2024-11-16 10:20 | XMS_ITS | Referral Summary ---
Author Organization [facility] Address [address] [place] [address] Care Team Providers Care Healthcare Economics Consultant Name Role Phone Samuel Brooke DO Primary Care Provider +1- [phone] Encounters Date Type Department Care Team Description 10/03/2024 Documentation [facility] Rheumatology [address] [facility] [address] [facility] 5th [place] [address] [place] [address] Sarah Beth Sanchez CMA 10/03/2024 3:00 PM CDT Office Visit [facility] Rheumatology [address] [facility] [facility] [address] 5th [place] [address] [place] [address] Franco Silva MD PhD Chronic right-sided low [...] 04/23/2022 Assessment & Plan (04/23/2022 9:39 PM RIBBON LAP MACHINE TENDER): Discussed more likely related to stress or possibly something she ate, rather than change in levothyroxine. Recommended starting omeprazole 20 mg BID. If no improvement, follow up with PCP. Arthritis 03/09/2022 Assessment & Plan (03/09/2022 3:39 PM RIBBON LAP MACHINE TENDER): referral to Rheumatology Weight loss counseling, encounter for 10/17/2021 Assessment & Plan (05/25/2022 6:11 PM RIBBON LAP MACHINE TENDER): Reviewed calorie restriction based on BMR as previously detailed. Reviewed recommendation/goal of >/= 150 minutes/week moderate-intensity aerobic exercise. Asked to try to track consistently with [employer] juliann for at least 1 week to help identify calorie/carb/protein intake. Commended for weight loss to date. Assessment & Plan (04/23/2022 9:26 PM RIBBON LAP MACHINE TENDER): Reviewed calorie restriction based on BMR as [...] 4.2 Assessment & Plan (05/25/2022 6:12 PM RIBBON LAP MACHINE TENDER): Continue low-carb (<150 g/day), low-glycemic diet. With IR confirmed per MARIA LUISA-IR score of 4.2 will start Metformin XR 500mg -- take 1 tablet daily for the 1st week, then increase to 2 tablets daily if tolerating. Discussed rationale in setting of insulin resistance. Discussed risks, benefits, alternatives, and potential side effects. Assessment & Plan (04/23/2022 9:45 PM RIBBON LAP MACHINE TENDER): Reviewed labs with her. Continue low-carb (<150 [...] w/r/t gut microbiome. Referred to ADA and [employer] websites for additional information on topics including glycemic index/carbohydrate choices, protein sources. More detailed recommendations pending review of labs and food record. Fatigue 10/17/2021 Assessment & Plan (05/25/2022 6:13 PM RIBBON LAP MACHINE TENDER): Seems improved somewhat, continues to work on [...] 03/17/2021 Assessment & Plan (05/25/2022 6:13 PM RIBBON LAP MACHINE TENDER): Obesity is improving with treatment. Diet interventions: as noted. Regular aerobic exercise program discussed. Plan- Start pharmacotherapy. Continue diet/exercise interventions as discussed. Schedule follow up with Dr. Palomares in 3 months. Assessment & Plan (04/23/2022 9:37 PM RIBBON LAP MACHINE TENDER): Obesity is improving.. Plan: Diet interventions: as noted.. and Regular aerobic exercise program discussed. 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 TSH goal normal range Assessment & Plan (03/09/2022 3:13 PM RIBBON LAP MACHINE TENDER): Continue current levothyroxine dose. Will check thyroid function test and adjust levothyroxine dose accordingly. TSH goal lower normal range Assessment & Plan (03/17/2021 3:51 PM RIBBON LAP MACHINE TENDER): Continue current levothyroxine dose. Will check thyroid function test and adjust levothyroxine dose accordingly. Assessment & Plan (03/04/2020 3:37 PM RIBBON LAP MACHINE TENDER): Continue current levothyroxine dose. Will check thyroid function test and adjust levothyroxine dose accordingly. Assessment & Plan (03/06/2019 8:46 AM RIBBON LAP MACHINE TENDER): Continue current levothyroxine dose. Will check thyroid function test and adjust levothyroxine dose accordingly. Prolactin increased 03/06/2019 Assessment & Plan (03/06/2019 8:47 AM RIBBON LAP MACHINE TENDER): Asked for outside pituitary MRI Will check PRL level Discussed other causes of high prolactin and If/ when treatment is indicated Menstrual cramps 03/06/2019 Assessment & Plan (03/06/2019 8:46 AM RIBBON LAP MACHINE TENDER): Will refer to LEVEL VIAL MARKER for evaluation of heavy bleeding Thyroid cancer 09/29/2018 Assessment & Plan (03/06/2019 8:46 AM RIBBON LAP MACHINE TENDER): No evidence of tumor recurrence on biochemical [...] markers. Assessment & Plan (03/09/2022 3:38 PM RIBBON LAP MACHINE TENDER): No evidence of tumor recurrence on biochemical and radiological data so far Low risk micro-papillary thyroid cancer TSH goal lower normal Biochemical evaluation with thyroid tumor markers. Assessment & Plan (03/17/2021 3:51 PM RIBBON LAP MACHINE TENDER): No evidence of tumor recurrence on biochemical and radiological data so far Low risk micro-papillary thyroid cancer TSH goal lower normal, given patient weight gain, she'd like to keep her TSH suppressed Biochemical evaluation with thyroid tumor markers. If above are in acceptable range, will plan follow-up on yearly basis Assessment & Plan (03/04/2020 3:37 PM RIBBON LAP MACHINE TENDER): No evidence of tumor recurrence on biochemical [...] CDT Gender Identity Female 05/03/2024 9:50 PM RIBBON LAP MACHINE TENDER Sexual Orientation Straight 05/03/2024 9: 50 PM RIBBON LAP MACHINE TENDER Last Filed Vital Signs Vital Sign Reading [...] Read Routine (OP Routine) 05/06/2024 2:08 PM RIBBON LAP MACHINE TENDER Screening mammogram, encounter for COLONOSCOPY 01/09/2021 1:38 PM CDT from Last 3 Months or Most Recently Relevant to Health Maintenance Results * Screening Mammogram Bilateral W Lv (05/06/2024 2:08 PM RIBBON LAP MACHINE TENDER) Anatomical Region Laterality Modality Breast Bilateral Mammography Narrative 05/09/2024 4:01 PM RIBBON LAP MACHINE TENDER Mammogram Technique: Bilateral Digital Breast Tomosynthesis, Bilateral [...] Female Attending MD: Anshul Leonard MD,PHD Room: [facility] ENDOSCOPY ROOM 01 Note Status: Finalized [...] The scope was passed under direct vision.The [id number] was introduced through the anusand advanced to the cecum, identified by appendiceal orifice and ileocecal valve. The colonoscopy was performed with ease. The patient tolerated the procedure well. The quality of the bowelpreparation was evaluated using the BBPS ([place] BowelPreparation Scale) with scores of: Right Colon [...] Most Recently Relevant to Health Maintenance Insurance [facility] CARE OTHER [facility] MEDICARE OOS Member Subscriber Plan / Payer ( fective 2020-Present) Name:Owen Josefa Lazo Relation to Subscriber:Spouse Name:DAPHNIE WEAVER Subscriber ID:Not on file Date of :1963 Payer ID:[id number] (NAIC) Type:MEDICARE RISK OTHER Address: [address] OOS Member Subscriber Plan / Payer ( fective 2020-Present) Name:Owen Josefa H Relation to Subscriber:Self Name:Owen Josefa H Payer ID:[id number] (NAIC) Type:[employer] Address: [address] [place] Member Subscriber Plan / Payer ( fective 2021-Present) Name:Josefa Weaver Relation to Subscriber:Spouse Name:JORDYDAPHNIE HEAD L Subscriber ID:Not on file Date of :1900 Payer ID:[id number] (NAIC) Type:[employer] Address: [address] CHOICE PLUS CHOICE PLUS CHOICE PLUS Advance Directives For more information, please contact: [phone] * Full Code (Latest Code Status on File) Date Activated Date Inactivated Comments 01/09/2021 12:43 PM 01/09/2021 7:25 PM Care Teams Healthcare Economics Consultant Relationship Specialty Start Date End Date Samuel Brooke DO PCP - General 07/08/16
--- OUTSIDE RECORDS SUMMARY | 2024-11-16 10:20 | XMS_ITS | Clinical Summary ---
Author Organization [facility] Address [address] [place] [address] Care Team Providers Care Hospital Director Name Role Phone Samuel Brooke DO Primary Care Provider +1- [phone] Allergies Active Allergy Reactions Criticality Noted Date [...] 04/23/2022 Assessment & Plan (04/23/2022 9:39 PM WRAP KNITTING MACHINE OPERATOR): Discussed more likely related to stress or possibly something she ate, rather than change in levothyroxine. Recommended starting omeprazole 20 mg BID. If no improvement, follow up with PCP. Arthritis 03/09/2022 Assessment & Plan (03/09/2022 3:39 PM WRAP KNITTING MACHINE OPERATOR): referral to Rheumatology Weight loss counseling, encounter for 10/17/2021 Assessment & Plan (05/25/2022 6:11 PM WRAP KNITTING MACHINE OPERATOR): Reviewed calorie restriction based on BMR as previously detailed. Reviewed recommendation/goal of >/= 150 minutes/week moderate-intensity aerobic exercise. Asked to try to track consistently with [employer] It juliann for at least 1 week to help identify calorie/carb/protein intake. Commended for weight loss to date. Assessment & Plan (04/23/2022 9:26 PM WRAP KNITTING MACHINE OPERATOR): Reviewed calorie restriction based on BMR as [...] 4.2 Assessment & Plan (05/25/2022 6:12 PM WRAP KNITTING MACHINE OPERATOR): Continue low-carb (<150 g/day), low-glycemic diet. With IR confirmed per MARIA LUISA-IR score of 4.2 will start Metformin XR 500mg -- take 1 tablet daily for the 1st week, then increase to 2 tablets daily if tolerating. Discussed rationale in setting of insulin resistance. Discussed risks, benefits, alternatives, and potential side effects. Assessment & Plan (04/23/2022 9:45 PM WRAP KNITTING MACHINE OPERATOR): Reviewed labs with her. Continue low-carb (<150 [...] w/r/t gut microbiome. Referred to ADA and [place] [facility] websites for additional information on topics including glycemic index/carbohydrate choices, protein sources. More detailed recommendations pending review of labs and food record. Fatigue 10/17/2021 Assessment & Plan (05/25/2022 6:13 PM WRAP KNITTING MACHINE OPERATOR): Seems improved somewhat, continues to work on [...] 03/17/2021 Assessment & Plan (05/25/2022 6:13 PM WRAP KNITTING MACHINE OPERATOR): Obesity is improving with treatment. Diet interventions: as noted. Regular aerobic exercise program discussed. Plan- Start pharmacotherapy. Continue diet/exercise interventions as discussed. Schedule follow up with Dr. Palomares in 3 months. Assessment & Plan (04/23/2022 9:37 PM WRAP KNITTING MACHINE OPERATOR): Obesity is improving.. Plan: Diet interventions: as noted.. and Regular aerobic exercise program discussed. 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 TSH goal normal range Assessment & Plan (03/09/2022 3:13 PM WRAP KNITTING MACHINE OPERATOR): Continue current levothyroxine dose. Will check thyroid function test and adjust levothyroxine dose accordingly. TSH goal lower normal range Assessment & Plan (03/17/2021 3:51 PM WRAP KNITTING MACHINE OPERATOR): Continue current levothyroxine dose. Will check thyroid function test and adjust levothyroxine dose accordingly. Assessment & Plan (03/04/2020 3:37 PM WRAP KNITTING MACHINE OPERATOR): Continue current levothyroxine dose. Will check thyroid function test and adjust levothyroxine dose accordingly. Assessment & Plan (03/06/2019 8:46 AM WRAP KNITTING MACHINE OPERATOR): Continue current levothyroxine dose. Will check thyroid function test and adjust levothyroxine dose accordingly. Prolactin increased 03/06/2019 Assessment & Plan (03/06/2019 8:47 AM WRAP KNITTING MACHINE OPERATOR): Asked for outside pituitary MRI Will check PRL level Discussed other causes of high prolactin and If/ when treatment is indicated Menstrual cramps 03/06/2019 Assessment & Plan (03/06/2019 8:46 AM WRAP KNITTING MACHINE OPERATOR): Will refer to DIRECTOR OF PATIENT CARE for evaluation of heavy bleeding Thyroid cancer 09/29/2018 Assessment & Plan (03/06/2019 8:46 AM WRAP KNITTING MACHINE OPERATOR): No evidence of tumor recurrence on biochemical [...] markers. Assessment & Plan (03/09/2022 3:38 PM WRAP KNITTING MACHINE OPERATOR): No evidence of tumor recurrence on biochemical and radiological data so far Low risk micro-papillary thyroid cancer TSH goal lower normal Biochemical evaluation with thyroid tumor markers. Assessment & Plan (03/17/2021 3:51 PM WRAP KNITTING MACHINE OPERATOR): No evidence of tumor recurrence on biochemical and radiological data so far Low risk micro-papillary thyroid cancer TSH goal lower normal, given patient weight gain, she'd like to keep her TSH suppressed Biochemical evaluation with thyroid tumor markers. If above are in acceptable range, will plan follow-up on yearly basis Assessment & Plan (03/04/2020 3:37 PM WRAP KNITTING MACHINE OPERATOR): No evidence of tumor recurrence on biochemical [...] Description 10/03/2024 3:00 PM CDT Office Visit [facility] Rheumatology [address] [facility] 5th [place] [address] [place] [phone] Franco Silva MD PhD Chronic right-sided low back pain, unspecified whether sciatica present (Primary Dx); Arthritis 10/03/2024 Documentation [facility] Rheumatology [address] [facility] 5[address] [place] [address] [place] [id number] Sarah Beth Sanchez CMA from Last 3 [...] CDT Gender Identity Female 05/03/2024 9:50 PM WRAP KNITTING MACHINE OPERATOR Sexual Orientation Straight 05/03/2024 9: 50 PM WRAP KNITTING MACHINE OPERATOR Obstetrics History Para Term AB IAB SAB [...] Well Visit/Exam 18-64 05/30/2020 05/30/2019 Influenza Vaccine (#1) 2024 Breast Cancer Screening-Mammogram 05/06/2025 025 Colon Cancer Screening-Colonoscopy 01/09/20312020 Pneumococcal vaccine <65 Aged Out No longer eligible based on patient's age to complete this topic Procedures Procedure Name Priority Date/Time Associated Diagnosis Comments SCREENING MAMMOGRAM BILATERAL W LV Schedule Routine, Read Routine (OP Routine) 05/06/2024 2:08 PM WRAP KNITTING MACHINE OPERATOR Screening mammogram, encounter for COLONOSCOPY 01/09/2021 1:38 PM CDT from Last 3 Months or Most Recently Relevant to Health Maintenance Results * Screening Mammogram Bilateral W Lv (05/06/2024 2:08 PM WRAP KNITTING MACHINE OPERATOR) Anatomical Region Laterality Modality Breast Bilateral Mammography Narrative 05/09/2024 4:01 PM WRAP KNITTING MACHINE OPERATOR Mammogram Technique: Bilateral Digital Breast Tomosynthesis, Bilateral C-view 2D Screening mammogram. Views obtained: bilateral craniocaudal and bilateral mediolateral oblique. Computer Aided Detection was performed. Mammogram Findings: The present examination has been compared to prior imaging studies performed at [facility] on 07/10/2016, 01/18/2017 and 02/17/2017. The [...] compared to prior imaging studies performed at [facility] on 07/10/2016, 01/18/2017 and 02/17/2017. The [...] Female Attending MD: Anshul Leonard MD,PHD Room: [facility] ENDOSCOPY ROOM 01 Note Status: Finalized [...] The scope was passed under direct vision.The [id number] was introduced through the anusand advanced to the cecum, identified by appendiceal orifice and ileocecal valve. The colonoscopy was performed with ease. The patient tolerated the procedure well. The quality of the bowelpreparation was evaluated using the BBPS ([place] BowelPreparation Scale) with scores of: Right Colon [...] Most Recently Relevant to Health Maintenance Insurance [facility] CARE OTHER [facility] [employer] [facility] HMO/PPO Address: [address] [place] [address] [facility] MEDICARE OOS BLUE ACCESS OOS [facility] [employer] [place] Member Subscriber Plan / Payer (Ef fective 2021-Present) Name:Josefa Weaver Relation to Subscriber:Spouse Name:JORDYADILENEDAPHNIE Subscriber ID:Not on file Date of :1900 Payer ID:[id number] (NAIC) Type:[employer] Address: [address] CHOICE PLUS [id number] CHOICE PLUS CHOICE PLUS Advance Directives For more information, please contact: [phone] * Full Code (Latest Code Status on File) Date Activated Date Inactivated Comments 01/09/2021 12:43 PM 01/09/2021 7:25 PM Care Teams Hospital Director Relationship Specialty Start Date End Date Samuel Brooke DO PCP - General 07/08/16
--- OUTSIDE RECORDS SUMMARY | 2024-11-16 10:20 | XMS_ITS | Clinical Summary ---
Author Organization [facility] Address [address] [place] [address] Care Team Providers Care Pen Or Pencil Assembly Machine Operator Name Role Phone Samuel Brokoe DO Primary Care Provider +1- [phone] Source Comments [facility],non-owned Affiliates and Associated Physician Practices is amultiple site organization consisting of ambulatory clinics and hospital sitesin [place], [place], [place] and [place]. This disclosure is being madepursuant to the Care Everywhere program and may not contain all information available regarding this patient. Last updated 18.[facility] [employer] Allergies Active Allergy Reactions Criticality Noted [...] on file Legal Sex Female 9:44 PM SCRAP BALER Gender Identity Not on file Sexual Orientation Not on file Last Filed Vital Signs Vital Sign Reading Time Taken Comments Blood Pressure 122/68 04/02/2018 11:05 AM SCRAP BALER Pulse 81 04/02/2018 11:05 AM SCRAP BALER Temperature 36.4 C (97.6 F) 04/02/2018 11:05 AM SCRAP BALER Respiratory Rate 16 04/02/2018 11:05 AM SCRAP BALER Oxygen Saturation 98% 04/02/2018 11:05 AM SCRAP BALER Inhaled Oxygen Concentration - - Weight 97.5 kg (215 lb) 04/02/2018 11:05 AM SCRAP BALER Height 157.5 cm (5' 2) 04/02/2018 11:05 AM SCRAP BALER Body Mass Index 39.32 04/02/2018 11:05 AM SCRAP BALER Plan of Treatment Health Maintenance Due Date [...] season) 2023 DEPRESSION SCREENING 04/26/2024 INFLUENZA VACCINE (#1) 2024 HIB VACCINE Aged Out No longer [...] age to complete this topic Care Teams Pen Or Pencil Assembly Machine Operator Relationship Specialty Start Date End Date Samuel Brooke DO PCP - General Internal Medicine 04/02/18
--- OUTSIDE RECORDS SUMMARY | 2024-11-16 10:20 | XMS_ITS | Encounter Summary ---
Author Organization [facility] Address [address] [place] [address] Care Team Providers Care Yard Hand Name Role Phone Samuel Brooke DO Primary Care Provider +1- [phone] Reason for Visit * Diagnostic Imaging (Routine) - Pending Review Specialty Diagnoses / Procedures Referred By Sandra jacobs Referred To Contact Diagnoses Screening mammogram, encounter for Procedures Breast Imaging Diagnostic Outside Reference Referral, Self Referral ID Status Reason Start Date Expiration Date V isits Requested Visits Authorized [id number] Pending Review 05/09/2024 06/08/2025 1 1 Encounter Details Date Type Department Care Team (Late st Contact Info) Description 07/10/2016 Hospital Encounter [facility] [address] [place] [id number] Social History Tobacco Use Types Packs/Day Years [...] CDT Gender Identity Female 05/03/2024 9:50 PM HEATER ENGINEER HELPER Sexual Orientation Straight 05/03/2024 9: 50 PM HEATER ENGINEER HELPER documented as of this encounter Functional Status [...] CDT) Impressions [facility] - 05/09/2024 2:04 PM HEATER ENGINEER HELPER These images are for Reference purposes only and have not been reviewed by [facility] Radiology. There will be no report generated by a [facility] Radiologist. Narrative [facility] - 05/09/2024 2:04 PM HEATER ENGINEER HELPER EXAMINATION: Images For Reference Purposes Only us Self Referral IMG MAMMO PROCEDURES Final Resul t [facility] documented in this encounter Visit Diagnoses Not on filedocumented in this encounter Care Teams Yard Hand Relationship Specialty Start Date End Date Samuel Brooke DO PCP - General 07/08/16 documented as of this encounter
--- OUTSIDE RECORDS SUMMARY | 2024-11-16 10:20 | XMS_ITS | Encounter Summary ---
Author Organization [facility] Address [address] [place] [address] Care Team Providers Care Offset Proof Press Operator Name Role Phone Samuel Brooke DO Primary Care Provider +1- [phone] Reason for Visit * Diagnostic Imaging (Routine) - Pending Review Specialty Diagnoses / Procedures Referred By Sandra jacobs Referred To Contact Procedures Breast Imaging Diagnostic Outside Reference Referral, Self Referral ID Status Reason Start Date Expiration Date V isits Requested Visits Authorized [id number] Pending Review 05/09/2024 06/08/2025 1 1 Encounter Details Date Type Department Care Team (Late st Contact Info) Description 01/18/2017 Hospital Encounter [facility] [address] [place] [id number] Social History Tobacco Use Types Packs/Day Years [...] CDT Gender Identity Female 05/03/2024 9:50 PM DIAMOND MOUNTER Sexual Orientation Straight 05/03/2024 9: 50 PM DIAMOND MOUNTER documented as of this encounter Functional Status documented as of this encounter Plan of Treatment Not on file documented as of this encounter Procedures Procedure Name Priority Date/Time Associated Diagnosis Comments BREAST IMAGING MG DIAGNOSTIC OUTSIDE REFERENCE Routine 01/18/2017 12:00 AM CDT documented in this encounter Results * Breast Imaging Diagnostic Outside Reference (01/18/2017 12:00 AM CDT) Impressions [facility] - 05/09/2024 2:04 PM DIAMOND MOUNTER These images are for Reference purposes only and have not been reviewed by [facility] Radiology. There will be no report generated by a [facility] Radiologist. Narrative [facility]MO[facility] - 05/09/2024 2:04 PM DIAMOND MOUNTER EXAMINATION: Images For Reference Purposes Only us Self Referral IMG MAMMO PROCEDURES Final Resul t [facility] documented in this encounter Visit Diagnoses Not on filedocumented in this encounter Care Teams Offset Proof Press Operator Relationship Specialty Start Date End Date Samuel Brooke DO PCP - General 07/08/16 documented as of this encounter
[2024-11-16 10:24] VITALS: BP 143/77; PULSE 89; RESP 18; TEMP 36.7; O2SAT 97
--- OUTSIDE RECORDS SUMMARY | 2024-11-16 12:29 | XMS_ITS | Encounter Summary ---
Author Organization [facility] Healthcare Address [address] [place] [address] Care Team Providers Care Laborer Hoisting Name Role Phone Samuel Brooke DO Primary Care Provider +1- [phone] Reason for Visit * Diagnostic Imaging (Routine) - Pending Review Specialty Diagnoses / Procedures Referred By Sandra jacobs Referred To Contact Procedures Breast Imaging US Outside Reference Referral, Self Referral ID Status Reason Start Date Expiration Date V isits Requested Visits Authorized [id number] Pending Review 05/09/2024 06/08/2025 1 1 Encounter Details Date Type Department Care Team (Late st Contact Info) Description 07/10/2016 12:05 AM CDT Hospital Encounter [facility] [address] [place] [id number] Social History Tobacco Use Types Packs/Day Years [...] CDT Gender Identity Female 05/03/2024 9:50 PM ENGINEERING CLERK Sexual Orientation Straight 05/03/2024 9: 50 PM ENGINEERING CLERK documented as of this encounter Functional Status documented as of this encounter Plan of Treatment Not on file documented as of this encounter Procedures Procedure Name Priority Date/Time Associated Diagnosis Comments BREAST IMAGING US OUTSIDE REFERENCE Routine 07/10/2016 12:05 AM CDT documented in this encounter Results * Breast Imaging US Outside Reference (07/10/2016 12:05 AM CDT) Impressions [facility] - 05/09/2024 2:04 PM ENGINEERING CLERK These images are for Reference purposes only and have not been reviewed by [facility]. There will be no report generated by a [facility] Radiologist. Narrative [facility] - 05/09/2024 2:04 PM ENGINEERING CLERK EXAMINATION: Images For Reference Purposes Only us Self Referral IMG MAMMO PROCEDURES Final Resul t [facility] documented in this encounter Visit Diagnoses Not on filedocumented in this encounter Care Teams Laborer Hoisting Relationship Specialty Start Date End Date Samuel Brooke DO PCP - General 07/08/16 documented as of this encounter
--- OUTSIDE RECORDS SUMMARY | 2024-11-16 12:29 | XMS_ITS | Referral Summary ---
Author Organization [facility] Address [address] [place] [address] Care Team Providers Care Distribution Operations Manager Name Role Phone Samuel Brooke DO Primary Care Provider +1- [phone] Encounters Date Type Department Care Team Description 10/03/2024 Documentation [facility] [address] [place] [address] [place] [address] Sarah Beth Sanchez CMA 10/03/2024 3:00 PM CDT Office Visit [facility] [address] [place] [address] [place] [address] Franco Silva MD PhD Chronic right-sided low [...] 04/23/2022 Assessment & Plan (04/23/2022 9:39 PM AIR LIAISON AND SPECIAL STAFF): Discussed more likely related to stress or possibly something she ate, rather than change in levothyroxine. Recommended starting omeprazole 20 mg BID. If no improvement, follow up with PCP. Arthritis 03/09/2022 Assessment & Plan (03/09/2022 3:39 PM AIR LIAISON AND SPECIAL STAFF): referral to Rheumatology Weight loss counseling, encounter for 10/17/2021 Assessment & Plan (05/25/2022 6:11 PM AIR LIAISON AND SPECIAL STAFF): Reviewed calorie restriction based on BMR as previously detailed. Reviewed recommendation/goal of >/= 150 minutes/week moderate-intensity aerobic exercise. Asked to try to track consistently with [employer] juliann for at least 1 week to help identify calorie/carb/protein intake. Commended for weight loss to date. Assessment & Plan (04/23/2022 9:26 PM AIR LIAISON AND SPECIAL STAFF): Reviewed calorie restriction based on BMR as [...] 4.2 Assessment & Plan (05/25/2022 6:12 PM AIR LIAISON AND SPECIAL STAFF): Continue low-carb (<150 g/day), low-glycemic diet. With IR confirmed per MARIA LUISA-IR score of 4.2 will start Metformin XR 500mg -- take 1 tablet daily for the 1st week, then increase to 2 tablets daily if tolerating. Discussed rationale in setting of insulin resistance. Discussed risks, benefits, alternatives, and potential side effects. Assessment & Plan (04/23/2022 9:45 PM AIR LIAISON AND SPECIAL STAFF): Reviewed labs with her. Continue low-carb (<150 [...] w/r/t gut microbiome. Referred to ADA and [employer] websites for additional information on topics including glycemic index/carbohydrate choices, protein sources. More detailed recommendations pending review of labs and food record. Fatigue 10/17/2021 Assessment & Plan (05/25/2022 6:13 PM AIR LIAISON AND SPECIAL STAFF): Seems improved somewhat, continues to work on [...] 03/17/2021 Assessment & Plan (05/25/2022 6:13 PM AIR LIAISON AND SPECIAL STAFF): Obesity is improving with treatment. Diet interventions: as noted. Regular aerobic exercise program discussed. Plan- Start pharmacotherapy. Continue diet/exercise interventions as discussed. Schedule follow up with Dr. Palomares in 3 months. Assessment & Plan (04/23/2022 9:37 PM AIR LIAISON AND SPECIAL STAFF): Obesity is improving.. Plan: Diet interventions: as noted.. and Regular aerobic exercise program discussed. 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 TSH goal normal range Assessment & Plan (03/09/2022 3:13 PM AIR LIAISON AND SPECIAL STAFF): Continue current levothyroxine dose. Will check thyroid function test and adjust levothyroxine dose accordingly. TSH goal lower normal range Assessment & Plan (03/17/2021 3:51 PM AIR LIAISON AND SPECIAL STAFF): Continue current levothyroxine dose. Will check thyroid function test and adjust levothyroxine dose accordingly. Assessment & Plan (03/04/2020 3:37 PM AIR LIAISON AND SPECIAL STAFF): Continue current levothyroxine dose. Will check thyroid function test and adjust levothyroxine dose accordingly. Assessment & Plan (03/06/2019 8:46 AM AIR LIAISON AND SPECIAL STAFF): Continue current levothyroxine dose. Will check thyroid function test and adjust levothyroxine dose accordingly. Prolactin increased 03/06/2019 Assessment & Plan (03/06/2019 8:47 AM AIR LIAISON AND SPECIAL STAFF): Asked for outside pituitary MRI Will check PRL level Discussed other causes of high prolactin and If/ when treatment is indicated Menstrual cramps 03/06/2019 Assessment & Plan (03/06/2019 8:46 AM AIR LIAISON AND SPECIAL STAFF): Will refer to LIABILITY CLAIMS EXAMINER for evaluation of heavy bleeding Thyroid cancer 09/29/2018 Assessment & Plan (03/06/2019 8:46 AM AIR LIAISON AND SPECIAL STAFF): No evidence of tumor recurrence on biochemical [...] markers. Assessment & Plan (03/09/2022 3:38 PM AIR LIAISON AND SPECIAL STAFF): No evidence of tumor recurrence on biochemical and radiological data so far Low risk micro-papillary thyroid cancer TSH goal lower normal Biochemical evaluation with thyroid tumor markers. Assessment & Plan (03/17/2021 3:51 PM AIR LIAISON AND SPECIAL STAFF): No evidence of tumor recurrence on biochemical and radiological data so far Low risk micro-papillary thyroid cancer TSH goal lower normal, given patient weight gain, she'd like to keep her TSH suppressed Biochemical evaluation with thyroid tumor markers. If above are in acceptable range, will plan follow-up on yearly basis Assessment & Plan (03/04/2020 3:37 PM AIR LIAISON AND SPECIAL STAFF): No evidence of tumor recurrence on biochemical [...] CDT Gender Identity Female 05/03/2024 9:50 PM AIR LIAISON AND SPECIAL STAFF Sexual Orientation Straight 05/03/2024 9: 50 PM AIR LIAISON AND SPECIAL STAFF Last Filed Vital Signs Vital Sign Reading [...] Read Routine (OP Routine) 05/06/2024 2:08 PM AIR LIAISON AND SPECIAL STAFF Screening mammogram, encounter for COLONOSCOPY 01/09/2021 1:38 PM CDT from Last 3 Months or Most Recently Relevant to Health Maintenance Results * Screening Mammogram Bilateral W Lv (05/06/2024 2:08 PM AIR LIAISON AND SPECIAL STAFF) Anatomical Region Laterality Modality Breast Bilateral Mammography Narrative 05/09/2024 4:01 PM AIR LIAISON AND SPECIAL STAFF Mammogram Technique: Bilateral Digital Breast Tomosynthesis, Bilateral [...] Female Attending MD: Anshul Leonard MD,PHD Room: [facility] RO[facility] 01 Note Status: Finalized Procedure: Colonoscopy Indications: Screening for colorectal malignant neoplasm Providers: Anshul Leonrad MD, PHD, Bimal Blancas M.D. (Fellow) Referring [...] The scope was passed under direct vision.The [id number] was introduced through the anusand advanced to the cecum, identified by appendiceal orifice and ileocecal valve. The colonoscopy was performed with ease. The patient tolerated the procedure well. The quality of the bowelpreparation was evaluated using the BBPS ([place] BowelPreparation Scale) with scores of: Right Colon [...] Most Recently Relevant to Health Maintenance Insurance [facility] OTHER [facility]/PPO Address: [address] [place] [address] [facility] [employer] OOS Member Subscriber Plan / Payer ( fective 2020-Present) Name:Owen Josefa Lazo Relation to Subscriber:Spouse Name:DAPHNIE WEAVER Subscriber ID:Not on file Date of :1963 Payer ID:[id number] (NAIC) Type:MEDICARE RISK OTHER Address: [address] [place] Member Subscriber Plan / Payer ( fective 2020-Present) Name:Owen Josefa H Relation to Subscriber:Self Name:Owen Josefa H Payer ID:[id number] (NAIC) Type:[employer] Address: [address] [place] Member Subscriber Plan / Payer ( fective 2021-Present) Name:Josefa Weaver Relation to Subscriber:Spouse Name:JORDYDAPHNIE HEAD L Subscriber ID:Not on file Date of :1900 Payer ID:[id number] (NAIC) Type:V[employer]ot Address: [address] CHOICE PLUS CHOICE PLUS CHOICE PLUS Advance Directives For more information, please contact: [phone] * Full Code (Latest Code Status on File) Date Activated Date Inactivated Comments 01/09/2021 12:43 PM 01/09/2021 7:25 PM Care Teams Distribution Operations Manager Relationship Specialty Start Date End Date Samuel Brooke DO PCP - General 07/08/16
--- OUTSIDE RECORDS SUMMARY | 2024-11-16 12:29 | XMS_ITS | Clinical Summary ---
Author Organization [facility] Address [address] [place] [address] Care Team Providers Care Pressroom Foreman Name Role Phone Samuel Brooke DO Primary Care Provider +1- [phone] Source Comments [facility],non-owned Affiliates and Associated Physician Practices is amultiple site organization consisting of ambulatory clinics and hospital sitesin [place], [place], [place] and [place]. This disclosure is being madepursuant to the Care Everywhere program and may not contain all information available regarding this patient. Last updated 18.[facility] [email or web address] Allergies Active Allergy Reactions Criticality Noted Date [...] on file Legal Sex Female 9:44 PM SUPERVISORY IT SPECIALIST Gender Identity Not on file Sexual Orientation Not on file Last Filed Vital Signs Vital Sign Reading Time Taken Comments Blood Pressure 122/68 04/02/2018 11:05 AM SUPERVISORY IT SPECIALIST Pulse 81 04/02/2018 11:05 AM SUPERVISORY IT SPECIALIST Temperature 36.4 C (97.6 F) 04/02/2018 11:05 AM SUPERVISORY IT SPECIALIST Respiratory Rate 16 04/02/2018 11:05 AM SUPERVISORY IT SPECIALIST Oxygen Saturation 98% 04/02/2018 11:05 AM SUPERVISORY IT SPECIALIST Inhaled Oxygen Concentration - - Weight 97.5 kg (215 lb) 04/02/2018 11:05 AM SUPERVISORY IT SPECIALIST Height 157.5 cm (5' 2) 04/02/2018 11:05 AM SUPERVISORY IT SPECIALIST Body Mass Index 39.32 04/02/2018 11:05 AM SUPERVISORY IT SPECIALIST Plan of Treatment Health Maintenance Due Date [...] age to complete this topic Care Teams Pressroom Foreman Relationship Specialty Start Date End Date Samuel Brooke DO PCP - General Internal Medicine 04/02/18
--- OUTSIDE RECORDS SUMMARY | 2024-11-16 12:29 | XMS_ITS | Encounter Summary ---
Author Organization [facility] Healthcare Address [address] [place] [address] Care Team Providers Care Canal Driver Name Role Phone Samuel Brooke DO Primary Care Provider +1- [phone] Reason for Visit * Diagnostic Imaging (Routine) - Pending Review Specialty Diagnoses / Procedures Referred By Sandra jacobs Referred To Contact Diagnoses Screening mammogram, encounter for Procedures Breast Imaging Diagnostic Outside Reference Referral, Self Referral ID Status Reason Start Date Expiration Date V isits Requested Visits Authorized [id number] Pending Review 05/09/2024 06/08/2025 1 1 Encounter Details Date Type Department Care Team (Late st Contact Info) Description 07/10/2016 Hospital Encounter [facility] [address] [place] [id number] Social History Tobacco Use Types Packs/Day Years [...] CDT Gender Identity Female 05/03/2024 9:50 PM MARZIPAN MOLDER Sexual Orientation Straight 05/03/2024 9: 50 PM MARZIPAN MOLDER documented as of this encounter Functional Status [...] CDT) Impressions [facility] - 05/09/2024 2:04 PM MARZIPAN MOLDER These images are for Reference purposes only and have not been reviewed by [facility]iology. There will be no report generated by a [facility] Radiologist. Narrative [facility] - 05/09/2024 2:04 PM MARZIPAN MOLDER EXAMINATION: Images For Reference Purposes Only us Self Referral IMG MAMMO PROCEDURES Final Resul t [facility] documented in this encounter Visit Diagnoses Not on filedocumented in this encounter Care Teams Canal Driver Relationship Specialty Start Date End Date Samuel Brooke DO PCP - General 07/08/16 documented as of this encounter
--- OUTSIDE RECORDS SUMMARY | 2024-11-16 12:29 | XMS_ITS | Encounter Summary ---
Author Organization [facility] Address [address] [place] [address] Phone Care Team Providers Care Pan Shover Name Role Phone Samuel Brooke DO Primary Care Provider +1- [phone] Encounter Details Date Type Department Care Team (Late st Contact Info) Description 10/03/2024 Documentation [facility] 5th [place] [address] [place] [address] Sarah Beth Sanchez CMA Social [...] CDT Gender Identity Female 05/03/2024 9:50 PM ADMINISTRATIVE ASSISTANT RECEPTIONIST Sexual Orientation Straight 05/03/2024 9: 50 PM ADMINISTRATIVE ASSISTANT RECEPTIONIST documented as of this encounter Plan of Treatment Not on file documented as of this encounter Visit Diagnoses Not on filedocumented in this encounter Care Teams Pan Shover Relationship Specialty Start Date End Date Samuel Brooke DO PCP - General 07/08/16 documented as of this encounter
--- OUTSIDE RECORDS SUMMARY | 2024-11-16 12:29 | XMS_ITS | Encounter Summary ---
Author Organization [facility] Healthcare Address [address] [place] [address] Care Team Providers Care Child'S Nurse Name Role Phone Samuel Brooke DO Primary Care Provider +1- [phone] Reason for Visit * Diagnostic Imaging (Routine) - Pending Review Specialty Diagnoses / Procedures Referred By Sandra jacobs Referred To Contact Procedures Breast Imaging Screening Outside Reference Referral, Self Referral ID Status Reason Start Date Expiration Date V isits Requested Visits Authorized [id number] Pending Review 05/09/2024 06/08/2025 1 1 Encounter Details Date Type Department Care Team (Late st Contact Info) Description 02/17/2017 Hospital Encounter [facility] [address] [place] [id number] Social History Tobacco Use Types Packs/Day Years [...] CDT Gender Identity Female 05/03/2024 9:50 PM SALE PROFESSIONAL DIGITAL MARKETING Sexual Orientation Straight 05/03/2024 9: 50 PM SALE PROFESSIONAL DIGITAL MARKETING documented as of this encounter Functional Status documented as of this encounter Plan of Treatment Not on file documented as of this encounter Procedures Procedure Name Priority Date/Time Associated Diagnosis Comments BREAST IMAGING MG SCREENING OUTSIDE REFERENCE Routine 02/17/2017 12:00 AM CDT documented in this encounter Results * Breast Imaging Screening Outside Reference (02/17/2017 12:00 AM CDT) Impressions [facility] - 05/09/2024 2:04 PM SALE PROFESSIONAL DIGITAL MARKETING These images are for Reference purposes only and have not been reviewed by [facility]iology. There will be no report generated by a [facility] Radiologist. Narrative [facility] - 05/09/2024 2:04 PM SALE PROFESSIONAL DIGITAL MARKETING EXAMINATION: Images For Reference Purposes Only us Self Referral IMG MAMMO PROCEDURES Final Resul t [facility] documented in this encounter Visit Diagnoses Not on filedocumented in this encounter Care Teams Child'S Nurse Relationship Specialty Start Date End Date Samuel Brooke DO PCP - General 07/08/16 documented as of this encounter
--- OUTSIDE RECORDS SUMMARY | 2024-11-16 12:29 | XMS_ITS | Clinical Summary ---
Author Organization [facility] Address [address] [place] [address] Care Team Providers Care Cash Grain Farmer Name Role Phone Samuel Brooke DO Primary Care Provider [phone]- [phone] Allergies Active Allergy Reactions Criticality Noted Date [...] 04/23/2022 Assessment & Plan (04/23/2022 9:39 PM BLACKTOP SPREADER): Discussed more likely related to stress or possibly something she ate, rather than change in levothyroxine. Recommended starting omeprazole 20 mg BID. If no improvement, follow up with PCP. Arthritis 03/09/2022 Assessment & Plan (03/09/2022 3:39 PM BLACKTOP SPREADER): referral to Rheumatology Weight loss counseling, encounter for 10/17/2021 Assessment & Plan (05/25/2022 6:11 PM BLACKTOP SPREADER): Reviewed calorie restriction based on BMR as previously detailed. Reviewed recommendation/goal of >/= 150 minutes/week moderate-intensity aerobic exercise. Asked to try to track consistently with [employer] juliann for at least 1 week to help identify calorie/carb/protein intake. Commended for weight loss to date. Assessment & Plan (04/23/2022 9:26 PM BLACKTOP SPREADER): Reviewed calorie restriction based on BMR as [...] 4.2 Assessment & Plan (05/25/2022 6:12 PM BLACKTOP SPREADER): Continue low-carb (<150 g/day), low-glycemic diet. With IR confirmed per MARIA LUISA-IR score of 4.2 will start Metformin XR 500mg -- take 1 tablet daily for the 1st week, then increase to 2 tablets daily if tolerating. Discussed rationale in setting of insulin resistance. Discussed risks, benefits, alternatives, and potential side effects. Assessment & Plan (04/23/2022 9:45 PM BLACKTOP SPREADER): Reviewed labs with her. Continue low-carb (<150 [...] w/r/t gut microbiome. Referred to ADA and [employer] websites for additional information on topics including glycemic index/carbohydrate choices, protein sources. More detailed recommendations pending review of labs and food record. Fatigue 10/17/2021 Assessment & Plan (05/25/2022 6:13 PM BLACKTOP SPREADER): Seems improved somewhat, continues to work on [...] 03/17/2021 Assessment & Plan (05/25/2022 6:13 PM BLACKTOP SPREADER): Obesity is improving with treatment. Diet interventions: as noted. Regular aerobic exercise program discussed. Plan- Start pharmacotherapy. Continue diet/exercise interventions as discussed. Schedule follow up with Dr. Palomares in 3 months. Assessment & Plan (04/23/2022 9:37 PM BLACKTOP SPREADER): Obesity is improving.. Plan: Diet interventions: as noted.. and Regular aerobic exercise program discussed. 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 TSH goal normal range Assessment & Plan (03/09/2022 3:13 PM BLACKTOP SPREADER): Continue current levothyroxine dose. Will check thyroid function test and adjust levothyroxine dose accordingly. TSH goal lower normal range Assessment & Plan (03/17/2021 3:51 PM BLACKTOP SPREADER): Continue current levothyroxine dose. Will check thyroid function test and adjust levothyroxine dose accordingly. Assessment & Plan (03/04/2020 3:37 PM BLACKTOP SPREADER): Continue current levothyroxine dose. Will check thyroid function test and adjust levothyroxine dose accordingly. Assessment & Plan (03/06/2019 8:46 AM BLACKTOP SPREADER): Continue current levothyroxine dose. Will check thyroid function test and adjust levothyroxine dose accordingly. Prolactin increased 03/06/2019 Assessment & Plan (03/06/2019 8:47 AM BLACKTOP SPREADER): Asked for outside pituitary MRI Will check PRL level Discussed other causes of high prolactin and If/ when treatment is indicated Menstrual cramps 03/06/2019 Assessment & Plan (03/06/2019 8:46 AM BLACKTOP SPREADER): Will refer to STONE ENGRAVER for evaluation of heavy bleeding Thyroid cancer 09/29/2018 Assessment & Plan (03/06/2019 8:46 AM BLACKTOP SPREADER): No evidence of tumor recurrence on biochemical [...] markers. Assessment & Plan (03/09/2022 3:38 PM BLACKTOP SPREADER): No evidence of tumor recurrence on biochemical and radiological data so far Low risk micro-papillary thyroid cancer TSH goal lower normal Biochemical evaluation with thyroid tumor markers. Assessment & Plan (03/17/2021 3:51 PM BLACKTOP SPREADER): No evidence of tumor recurrence on biochemical and radiological data so far Low risk micro-papillary thyroid cancer TSH goal lower normal, given patient weight gain, she'd like to keep her TSH suppressed Biochemical evaluation with thyroid tumor markers. If above are in acceptable range, will plan follow-up on yearly basis Assessment & Plan (03/04/2020 3:37 PM BLACKTOP SPREADER): No evidence of tumor recurrence on biochemical [...] Description 10/03/2024 3:00 PM CDT Office Visit [facility] Rheumatology [address] [place] [address] [place] [id number] Franco Silva MD PhD Chronic right-sided low back pain, unspecified whether sciatica present (Primary Dx); Arthritis 10/03/2024 Documentation [facility] Rheumatology [address] [place] [address] [place] [id number] Sarah Beth Sanchez CMA from Last 3 [...] CDT Gender Identity Female 05/03/2024 9:50 PM BLACKTOP SPREADER Sexual Orientation Straight 05/03/2024 9: 50 PM BLACKTOP SPREADER Obstetrics History Para Term AB IAB SAB [...] Read Routine (OP Routine) 05/06/2024 2:08 PM BLACKTOP SPREADER Screening mammogram, encounter for COLONOSCOPY 01/09/2021 1:38 PM CDT from Last 3 Months or Most Recently Relevant to Health Maintenance Results * Screening Mammogram Bilateral W Lv (05/06/2024 2:08 PM BLACKTOP SPREADER) Anatomical Region Laterality Modality Breast Bilateral Mammography Narrative 05/09/2024 4:01 PM BLACKTOP SPREADER Mammogram Technique: Bilateral Digital Breast Tomosynthesis, Bilateral C-view 2D Screening mammogram. Views obtained: bilateral craniocaudal and bilateral mediolateral oblique. Computer Aided Detection was performed. Mammogram Findings: The present examination has been compared to prior imaging studies performed at [facility] on 07/10/2016, 01/18/2017 and 02/17/2017. The breasts [...] compared to prior imaging studies performed at [facility] on 07/10/2016, 01/18/2017 and 02/17/2017. The breasts [...] Female Attending MD: Anshul Leonard MD,PHD Room: [facility] ENDOSCOPY ROOM 01 Note Status: Finalized [...] The scope was passed under direct vision.The [id number] was introduced through the anusand advanced to the cecum, identified by appendiceal orifice and ileocecal valve. The colonoscopy was performed with ease. The patient tolerated the procedure well. The quality of the bowelpreparation was evaluated using the BBPS (Cato BowelPreparation Scale) with scores of: Right Colon [...] Most Recently Relevant to Health Maintenance Insurance [facility] CARE OTHER [facility] [employer] MEDICARE OOS BLUE ACCESS [facility] [place] Member Subscriber Plan / Payer (Ef fective 2021-Present) Name:Josefa Weaver Relation to Subscriber:Spouse Name:JORDYADILENEDAPHNIE Subscriber ID:Not on file Date of :1900 Payer ID:[id number] (NAIC) Type:[employer] Address: [address] CHOICE PLUS [id number] CHOICE PLUS CHOICE PLUS Advance Directives For more information, please contact: [phone] * Full Code (Latest Code Status on File) Date Activated Date Inactivated Comments 01/09/2021 12:43 PM 01/09/2021 7:25 PM Care Teams Cash Grain Farmer Relationship Specialty Start Date End Date Samuel Brooke DO PCP - General 07/08/16
--- OUTSIDE RECORDS SUMMARY | 2024-11-16 12:29 | XMS_ITS | Encounter Summary ---
Author Organization [facility] Healthcare Address [address] [place] [address] Care Team Providers Care Prize Jacker Name Role Phone Samuel Brooke DO Primary Care Provider [phone]- [phone] Reason for Visit * Diagnostic Imaging (Routine) - Pending Review Specialty Diagnoses / Procedures Referred By Sandra jacobs Referred To Contact Procedures Breast Imaging Diagnostic Outside Reference Referral, Self Referral ID Status Reason Start Date Expiration Date V isits Requested Visits Authorized [id number] Pending Review 05/09/2024 06/08/2025 1 1 Encounter Details Date Type Department Care Team (Late st Contact Info) Description 01/18/2017 Hospital Encounter [facility] [address] [place] [id number] Social History Tobacco Use Types Packs/Day Years [...] CDT Gender Identity Female 05/03/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 Sexual Orientation Straight 05/03/2024 9: 50 PM 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 There will be no report generated by a [facility] Radiologist. Narrative [facility]_MAMMO[facility] - 05/09/2024 2:04 PM MOLDED GOODS OPERATOR EXAMINATION: Images For Reference Purposes Only us Self Referral IMG MAMMO PROCEDURES Final Resul t [facility] documented in this encounter Visit Diagnoses Not on filedocumented in this encounter Care Teams Prize Jacker Relationship Specialty Start Date End Date Samuel Brooke DO PCP - General 07/08/16 documented as of this encounter
--- OUTSIDE RECORDS SUMMARY | 2024-11-16 12:29 | XMS_ITS | Clinical Summary ---
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
--- NOTE | 2024-11-16 13:00 | ED_ITS ---
HPI - Extremity Injury (Lower) General Chief Complaint: Extremity Injury, Lower Stated Complaint: right ankle injury Time Seen by Provider: 11/16/24 12:03 Source: patient Mode of arrival: ambulatory Limitations: no limitations History of Present Illness HPI Narrative: Patient was at a concert last side was walking and rolled her ankle on a curb. Having a lot of pain in the lateral aspect of her right ankle. Typing or she wants today with swelling and pain so she came to the ER to be evaluated. No other injury. Related Data Home Medications ?Medication ?Instructions ?Recorded ?Confirmed ?Last Taken ?Type levothyroxine 175 mcg tablet 175 mcg PO DAILY 02/03/23 08/14/24 Unknown History (Synthroid) Allergies Allergy/AdvReac Type Severity Reaction Status Date / Time peanut Allergy Severe ANAPHYLAXIS Verified 11/16/24 12:01 red dye Allergy Dizziness Verified 11/16/24 12:01 shellfish derived AdvReac Severe FAULKNER/NAUSEA Verified 11/16/24 12:01 SEAFOOD AND SHELLFISH adhesive AdvReac Intermediate BLISTERS,SKIN Verified 11/16/24 12:01 PEELING doxycycline AdvReac Intermediate HALLUCINATI Verified 11/16/24 12:01 ONS naproxen AdvReac Intermediate Unknown Verified 11/16/24 12:01 tetracycline AdvReac Intermediate VISUAL Verified 11/16/24 12:01 DISTRUBANCE Review of Systems Review of Systems: All systems reviewed & are unremarkable except as noted in HPI and below (HPI) PMFSH Past Medical History Medical History Anxiety and depression Hypothyroidism (acquired) Chronic sinusitis Thyroid cancer 2017 Surgical History Surgical History History of hysteroscopy History of arthroscopy of knee H/O thyroidectomy 2017 Family History Family History Father CAD (coronary artery disease) Type 2 diabetes mellitus Thyroid disease Mother Type 2 diabetes mellitus Hypertension Sibling Thyroid cancer Other Depression Diabetes mellitus Family history of arthritis Family history of hearing loss Social History Social History Smoking status: Never smoker Alcohol intake: current Substance use: never Substance use type: does not use Do You Feel Safe in your Home?: Yes Lack of Transportation: No Lack of Food: Sometimes True Current Housing: I Have Housing Concerned About Future Housing: No Difficulty Paying Gas/Electric Bills: Decline to Answer Difficulty Paying for Meds: No Currently Unemployed: No Education: Master's Degree or Higher Difficulty w/ Childcare or Family Care: No Living arrangements: alone Occupation/Education: unemployed Gender identity (if verbalized by the patient): Female Agree to blood products: Yes Exam Narrative: Constitutional: Generally well appearing, no acute distress Head: Atraumatic, no deformities. Eyes: Pupils equal, round, and reactive to light. Neck: Supple, no tracheal deviation, no JVD. ENMT: Mucous membranes moist Cardiovascular: S1, S2 auscultated. No murmurs, rubs, or gallops. No S3/S4. Normal Distal pulses. No peripheral edema. Respiratory: Lung sounds equal. No wheezes, rales, or rhonchi. Gastrointestinal: Abdomen was soft, nondistended Musculoskeletal: Normal muscle tone and bulk. Tenderness with swelling over lateral malleolus on the right ankle. Neurovascularly intact distally. Skin: No rashes. Neurological: Strength 5/5 in extremities. Distal sensation intact. Mental Status: Awake, alert and oriented x3. Follows commands Course Vital Signs Vital signs: Vital Signs Temperature 36.7 C 11/16/24 10:24 Pulse Rate 89 11/16/24 10:24 Respiratory Rate 18 11/16/24 10:24 Blood Pressure 143/77 H 11/16/24 10:24 Pulse Oximetry 97 11/16/24 10:24 Temperature 36.7 C 11/16/24 10:24 Pulse Rate 89 11/16/24 10:24 Respiratory Rate 18 11/16/24 10:24 Blood Pressure 143/77 H 11/16/24 10:24 Pulse Oximetry 97 11/16/24 10:24 MDM - Extremity Injury (Lower) MDM Narrative Medical decision making narrative: 53-year-old female presenting for right ankle injury. Twisted it on a curb last night. Exam shows swelling and tenderness over the lateral malleolus. X-ray obtained to rule out fracture. X-ray shows no evidence of acute fracture, some soft tissue swelling. Diagnosed with ankle sprain. Wrapped in Delvin wrap. Discussed using ice at home and staying off of it for few days with crutches. She has crutches at home. Pt feeling improved and would like to go home at this point. Return precautions were given to the patient include any new or worsening symptoms or development of and not limited to any chest pain, shortness of breath, lightheadedness, abdominal pain, fevers, chills. Patient understands and agrees. They are to follow-up with her PCP. All questions were answered. I reviewed the patient's vital signs, history, allergies, and labs and imaging workup. Discharge Plan Discharge Clinical Impression: Moderate right ankle sprain Patient Disposition: Home Condition: Stable Instructions: Antibiotic Form, Ankle Sprain (ED) Patient Language: Vietnamese Prescriptions: No Action levothyroxine [Synthroid] 175 mcg tablet 175 mcg PO DAILY sertraline 50 mg tablet 50 mg PO DAILY Qty: 90 0RF Rx Instructions: Take with 100 mg tablets to equal 150 mg. triamcinolone acetonide 0.1 % ointment 1 applic topical BID Qty: 15 0RF Follow-up/Referrals: Samuel Brooke, [Primary Care Provider] -
== END 2024-11-16 13:27 | disposition home or self-care (01) ==
PROVIDERS: Emergency Provider Emergency Medicine; PCP Internal Medicine
DX: S93.401A Sprain of unspecified ligament of right ankle, initial encounter (principal); X58.XXXA Exposure to other specified factors, initial encounter; Z85.850 Personal history of malignant neoplasm of thyroid; F41.8 Other specified anxiety disorders
CPT/HCPCS: 73610; 99283